=== PATIENT | female | born 1945 | race Caucasian/White ===

== ENCOUNTER → 2017-02-15 | Outpatient (CLI) | payer OTHER, MEDICARE | LOC: FLAB 15:22 | PROVIDERS: ATTEND Physician Assistant | DX: M25.572 Pain in left ankle and joints of left foot (principal); R93.8 Abnormal findings on diagnostic imaging of other specified body structures ==

== ENCOUNTER 2018-12-06 15:44 | Emergency (ER) | payer OTHER, MEDICARE ==
[2018-12-06 17:10] LABS: PLATELET COUNT 268 10^3/uL (150-400)
[2018-12-06] MEDS ORDERED: ACETAMINOPHEN 500 MG TAB PO ONE (17:30)
--- NOTE | 2018-12-06 17:34 | EDPHY ---
H & P Time Seen by Provider: 12/06/18 16:30 HPI/ROS: HPI Left shoulder pain. 73-year-old female by private vehicle with her . This patient reports that she woke last night with atraumatic left shoulder pain described as an aching crampy extending from the mid shoulder up into the anterior proximal frontal area of her neck and her trapezius musculature. She denies any history of traumatic injury. She took a meloxicam at 2:30 p.m. Today and has not had significant relief. She was sent here by her primary care physician Dr. Mylene Dahl for further workup. She has never had this pain before. She denies any chest pain. No shortness of breath. She does report after taking the meloxicam she had some nausea and lightheadedness which resolved. She also reports the pain in her left shoulder areas made worse by certain rotational movements of her left shoulder. ROS: Constitutional: No fever, no chills. No weakness. Eyes: No discharge. No changes in vision. ENT: No sore throat. No nasal congestion or rhinorrhea. Respiratory: No cough. No shortness of breath. Cardiac: No chest pain, no palpitations. Gastrointestinal: No abdominal pain, no vomiting, no diarrhea. Genitourinary: No hematuria. No dysuria or increased frequency with urination. Musculoskeletal: No back pain. No neck pain. As above. No other extremity pain. Skin: No rashes. Neurological: No headache. No focal weakness or altered sensation. Past medical history: Hyperlipidemia. Arthritis of both shoulders. Social history: Nonsmoker. Here with her . No alcohol. Physical Exam: General Appearance: Alert, no distress. This patient is responding to questions appropriately and in full sentences. This patient appears well- hydrated and well-nourished. Eyes: Pupils equal and round no pallor or injection. No lid edema, erythema or injection. Left shoulder exam: The left upper extremity is neurovascularly intact. The axillary nerve distribution is intact. She has no tenderness on palpation or deformity noted over her AC joint. The glenohumeral joint ranges freely in all planes of motion without any pain or impingement. There is no pain on axial compression of the glenohumeral joint through her humerus. There is no soft tissue swelling or edema noted involving her soft tissues of her proximal anterior neck and trapezius musculature. No rashes. Respiratory: There are no retractions, lungs are clear to auscultation with good air movement bilaterally. Cardiovascular: Regular rate and rhythm. No murmur. Gastrointestinal: Abdomen is soft and nontender, no masses, bowel sounds normal. No focal tenderness at McBurney's point. No Holcomb sign. Neurological: Motor sensory function is grossly intact. Cranial nerves are normal. Gait is normal. Skin: Warm and dry, no rashes. Musculoskeletal: Neck is supple and nontender. No pain on flexion of her neck. Extremities are symmetrical. All joints range without pain or impingement. Psychiatric: No agitation. No depression. Database: EKG: EKG time is 4:27 p.m.; EKG shows a narrow complex normal sinus rhythm with a ventricular rate of 76. Mild interventricular conduction delay noted. Left anterior fascicular block noted. Possible left ventricular hypertrophy. The MA , QRS, QT intervals are within normal limits. There are no ST-T wave changes indicative of ischemic or injury pattern. No evidence of right heart strain. Interpreted by me. Imaging: Procedures: Emergency department course: Triage vital signs reviewed and are unremarkable. IV was placed. She was placed on a monitor. EKG obtained and reviewed by myself. Patient's presentation is consistent with a musculoskeletal etiology of her shoulder pain. I believe referred pain from her diaphragm and spleen is unlikely. Acute coronary syndrome unlikely. 5:30 p.m., the patient was re-evaluated. She appears comfortable at this time. She denies any significant pain. Results of her EKG discussed with her and her . We are awaiting the results of her troponin. She explained to me that she did not want to be admitted. 6:15 p.m., patient re-evaluated, sitting upright on the gurney. Her relaxed and comfortable. She denies any significant pain. Results of her blood work including troponin were discussed with her. Her workup has been reassuring. I feel that acute coronary syndrome is unlikely. However, I discussed admission with the patient for observation and further testing overnight. She clearly does not want to be admitted to the hospital and is asking to be discharged. My professional opinion, she understands the risks of being discharged at this time given her complaint. She will follow up with her primary care physician, Dr. Mylene Dahl, in the next 1-2 days. Return to emergency department precautions were thoroughly reviewed with her. All of her questions were answered. She was discharged from the emergency department in good condition. Differential Diagnosis: The differential diagnosis on this patient includes but is not limited to left shoulder pain. Acute coronary syndrome, splenic injury, brachial plexus injury , cervical spine injury unlikely. This represents a partial list of diagnoses considered. These considerations are based on history, physical exam, past history, reassessment and diagnostic testing. Smoking Status: Never smoked Constitutional: Initial Vital Signs Temperature (C) 36.5 C 12/06/18 15:53 Heart Rate 81 12/06/18 15:53 Respiratory Rate 16 12/06/18 15:53 Blood Pressure 151/91 H 12/06/18 15:53 O2 Sat (%) 97 12/06/18 15:53 O2 Delivery Mode Room Air Allergies/Adverse Reactions: No Known Allergies Allergy (Unverified 10/29/12 10:56) Home Medications: Medication Instructions Recorded SIMVASTATIN [Zocor] 20 mg PO DAILY 09/29/10 Meloxicam 12/06/18 Medical Decision Making - Data Points Laboratory Results: Laboratory Results 12/06/18 16:43 12/06/18 16:43 12/06/18 12/06/18 12/06/18 17:28 16:43 16:43 WBC RBC Hgb Hct MCV MCH MCHC RDW Plt Count MPV Neut % (Auto) Lymph % (Auto) [place] % (Auto) Eos % (Auto) Baso % (Auto) Nucleat RBC Rel Count Absolute Neuts (auto) Absolute Lymphs (auto) Absolute Monos (auto) Absolute Eos (auto) Absolute Basos (auto) Absolute Nucleated RBC Immature Gran % Immature Gran # PT 12.6 SEC SEC (12.0-15.0) INR 0.92 (0.83-1.16) APTT 28.3 SEC SEC (23.0-38.0) Sodium 133 mEq/L L mEq/L (135-145) Potassium 4.8 mEq/L mEq/L (3.5-5.2) Chloride 99 mEq/L mEq/L (97-110) Carbon Dioxide 27 mEq/l mEq/l (22-31) Anion Gap 7 mEq/L mEq/L (6-14) BUN 24 mg/dL H mg/dL (7-23) Creatinine 0.8 mg/dL mg/dL (0.6-1.0) Estimated GFR > 60 Glucose 113 mg/dL H mg/dL (70-100) Calcium 9.2 mg/dL mg/dL (8.5-10.4) POC Troponin I 0.00 ng/mL ng/mL (0.00-0.08) 12/06/18 16:43 WBC 7.91 10^3/uL 10^3/uL (3.80-9.50) RBC 4.29 10^6/uL 10^6/uL (4.18-5.33) Hgb 13.0 g/dL g/dL (12.6-16.3) Hct 39.6 % % (38.0-47.0) MCV 92.3 fL fL (81.5-99.8) MCH 30.3 pg pg (27.9-34.1) MCHC 32.8 g/dL g/dL (32.4-36.7) RDW 13.1 % % (11.5-15.2) Plt Count 268 10^3/uL 10^3/uL (150-400) MPV 10.2 fL fL (8.7-11.7) Neut % (Auto) 73.5 % % (39.3-74.2) Lymph % (Auto) 15.0 % % (15.0-45.0) [place] % (Auto) 9.2 % % (4.5-13.0) Eos % (Auto) 1.4 % % (0.6-7.6) Baso % (Auto) 0.6 % % (0.3-1.7) Nucleat RBC Rel Count 0.0 % % (0.0-0.2) Absolute Neuts (auto) 5.81 10^3/uL 10^3/uL (1.70-6.50) Absolute Lymphs (auto) 1.19 10^3/uL 10^3/uL (1.00-3.00) Absolute Monos (auto) 0.73 10^3/uL 10^3/uL (0.30-0.80) Absolute Eos (auto) 0.11 10^3/uL 10^3/uL (0.03-0.40) Absolute Basos (auto) 0.05 10^3/uL 10^3/uL (0.02-0.10) Absolute Nucleated RBC 0.00 10^3/uL 10^3/uL (0-0.01) Immature Gran % 0.3 % % (0.0-1.1) Immature Gran # 0.02 10^3/uL 10^3/uL (0.00-0.10) PT INR APTT Sodium Potassium Chloride Carbon Dioxide Anion Gap BUN Creatinine Estimated GFR Glucose Calcium POC Troponin I Medications Given: Discontinued Medications Acetaminophen (Tylenol) 1,000 mg PO EDNOW ONE Stop: 12/06/18 17:31 Last Admin: 12/06/18 17:47 Dose: 1,000 mg Point of Care Test Results: Chemistry 12/06/18 17:28 POC Troponin I 0.00 ng/mL ng/mL (0.00-0.08) Departure - Departure Disposition: Home, Routine, Self-Care Clinical Impression: Left shoulder pain Condition: Good Instructions: Shoulder Pain (ED) Additional Instructions: Read and follow provided instructions. Follow-up with your primary care physician, Dr. Mylene Dahl, in 1-2 days for re-evaluation. Take Tylenol as directed. Avoid any activity which exacerbates the pain in her shoulder. Return to the emergency department for worsening pain, any chest pain, any shortness of breath, lightheadedness or other serious concerns. Referrals: Mylene Dahl MD [Primary Care Provider] - As per Instructions
[2018-12-06 17:41] LABS: INR 0.92 (0.83-1.16); PROTIME(PATIENT) 12.6 SEC (12.0-15.0)
[2018-12-06 17:47] VITALS: BP 122/71
--- NOTE | 2018-12-06 20:55 | CPEKG ---
Test Reason : OPEN Blood Pressure : / mmHG Vent. Rate : 076 BPM Atrial Rate : 076 BPM P-R Int : 175 ms QRS Dur : 114 ms QT Int : 394 ms P-R-T Axes : 059 -51 043 degrees QTc Int : 444 ms Sinus rhythm Left anterior fascicular block Abnormal R-wave progression, early transition Left ventricular hypertrophy Confirmed by Zachery Sofia ([id number]) on 12/06/2018 8:54:27 PM Referred By: Confirmed By:Zachery Sofia
== END 2018-12-06 18:19 | disposition home or self-care (01) ==
DX: M25.512 Pain in left shoulder (principal)
CPT/HCPCS: 84484-ER

== ENCOUNTER 2018-12-26 17:06 | Inpatient (IN) | payer OTHER, MEDICARE ==
[~2018-12-26 17:06] MED LIST: IOHEXOL 350mgI/ML (OMNIPAQUE) 150 ML BTL IV ONE
--- NOTE | 2018-12-26 17:18 | EDPHY ---
H & P Stated Complaint: sob/palpitations chest cta today pericardial and pleural effusions Time Seen by Provider: 12/26/18 17:17 HPI/ROS: CHIEF COMPLAINT: Chest pain, pleural and pericardial effusions on outpatient CTA today HISTORY OF PRESENT ILLNESS: The patient is a 73 y/o female arriving with her partner from [facility] complaining of chest pain with pleural and pericardial effusions on outpatient chest CTA today. Three weeks ago she awoke with acute onset pain like a "knife in my left shoulder being twisted." She took pain medication without improvement and came to the ED due to concern for a heart attack and had a negative work up at that time, though admission was recommended. Since then, she has been using Tylenol and ibuprofen multiple times per day for pain, but this does not always control her pain. She visited [place] shortly after her ED visit and while there developed dyspnea worse with mild exertion. The dyspnea and left shoulder pain has persisted and is aggravated by inhalation. She was referred to [facility] for this shoulder pain and saw Dr. August for the first time today. Dr. August was concerned that symptoms were related to a pulmonary issue and ordered chest CTA today. This showed pleural and pericardial effusions and she was referred to the ED. REVIEW OF SYSTEMS: A ten system review of systems was performed and is negative with the exception of the items mentioned in the HPI. Past medical history: 1. Hyperlipidemia 2. Arthritis Past surgical history: Noncontributory Family history: Noncontributory Social history: Partner at bedside. Physically active. Nonsmoker. No alcohol. PCP: Dr. Mylene Dahl Prior medical records reviewed including ED visit 12/06/18 for shoulder pain and outpatient General Appearance: Alert. Vital signs reviewed. HR around 150. Eyes: Pupils equal and round, no conjunctival injection, no discharge. Anicteric. ENT, Mouth: Mucous membranes are moist, no oropharyngeal erythema or edema. Neck: No lymphadenopathy, supple. Respiratory: Lungs have crackles on the right, diminished on the left. No wheezes or rhonchi. Cardiovascular: Rapid irregularly irregular rate and rhythm; no murmur, rub, or gallop. Gastrointestinal: Abdomen is soft and nontender, no masses or organomegaly. Skin: Warm and dry, no rashes on exposed skin, normal color. Back: Nontender to palpation over the thoracolumbar spine. No CVAT. Extremities: No lower extremity edema, no calf tenderness or swelling. Neurological: Alert and oriented. Moving all four extremities easily and equally. Psychiatric: Normal affect. - Personal History Current Tetanus Diphtheria and Acellular Pertussis (TDAP): Yes - Medical/Surgical History Hx Asthma: No Hx Chronic Respiratory Disease: No Hx Diabetes: No Hx Cardiac Disease: No Hx Renal Disease: No Hx Cirrhosis: No Hx Alcoholism: No Hx HIV/AIDS: No Hx Splenectomy or Spleen Trauma: No Other PMH: high cholesterol. bilat shoulder issues - Social History Smoking Status: Never smoked Constitutional: Initial Vital Signs Temperature (C) 36.9 C 12/26/18 17:12 Heart Rate 101 H 12/26/18 17:12 Respiratory Rate 18 12/26/18 17:12 Blood Pressure 141/91 H 12/26/18 17:12 O2 Sat (%) 94 12/26/18 17:12 O2 Delivery Mode Room Air Allergies/Adverse Reactions: meloxicam Allergy (Verified 12/26/18 17:10) Home Medications: Medication Instructions Recorded SIMVASTATIN [Zocor] 20 mg PO DAILY@18 09/29/10 Acetaminophen [Tylenol 325mg (*)] 650 mg PO Q4 PRN 12/26/18 Ibuprofen [Motrin (*)] 200 mg PO Q6 PRN 12/26/18 Medical Decision Making - Diagnostics Imaging: Discussed imaging studies w/ calliope player Radiologist, I viewed and interpreted images myself ED Course/Re-evaluation: This is a 73 y/o female with minimal prior diagnoses who presents with a 3-week history of left shoulder pain and negative prior ED work up for this who presents with pleural effusions and pericardial effusion on outpatient chest CTA today. She has a rapid irregular heart rate around 130-150 and crackles on the right to auscultation, but is generally well-appearing. Plan for IV, labs, EKG, rate control, echocardiogram, admission. 10mg IV Diltazem ordered. The 12 lead EKG was interpreted by myself. Rapid atrial fibrillation, rate around 125. See hard copy and/or "tracemaster" electronic copy for interpretation. Spoke with hospitalist service. Dr. Dee accepts admission. 1844: Reevaluated patient and discussed findings. HR between 110-125. 1919: Consulted with Dr. Jacob, cardiology. He will review echocardiogram once complete. Patient received 10 mg iv diltiazem, with dip in her BP (systolic 90s), no symptoms related to hypotension. Will hold off on additional diltiazem for now , consider amiodarone. She continues to be in afib. Echocardiogram performed in ED. will see patient. I am told that there is no evidence of cardiac tamponade. She will require additional evaluation of her pleural and pericardial effusions (malignancy? autoimmune disorder? pericarditis?). Differential Diagnosis: I considered a ddx of afib that includes but is not limited to ACS, valvular disease,stimulants, SSS, sleep apnea, endocrine disorder. - Data Points Laboratory Results: Laboratory Results 12/26/18 18:00 12/26/18 18:00 Medications Given: Acetaminophen (Tylenol) 650 mg PO Q4HRS PRN PRN Reason: Pain, Mild/Fever, Can Take PO Stop: 06/24/19 18:59 Last Admin: 12/31/18 06:40 Dose: 650 mg Aspirin (Aspirin) 325 mg PO DAILY KATIE Stop: 06/24/19 19:14 Last Admin: 12/31/18 12:19 Dose: 325 mg Colchicine (Colchicine) 0.6 mg PO DAILY KATIE Stop: 06/29/19 12:14 Last Admin: 12/31/18 12:19 Dose: 0.6 mg Enoxaparin Sodium (Lovenox) 40 mg SC DAILY KATIE Stop: 06/25/19 08:59 Last Admin: 12/31/18 12:19 Dose: 40 mg Miscellaneous Information (Patch Removal) 1 ea TD DAILY21 KATIE Stop: 06/28/19 20:59 Last Admin: 12/30/18 23:45 Dose: 1 ea Miscellaneous Medication (Non-Formulary) 20 ea PO DAILY@18 KATIE Stop: 06/27/19 17:59 Last Admin: 12/30/18 17:02 Dose: 20 mg Miscellaneous Medication (Icy Hot Lidocaine/Menthol 4%/1% Patch) 1 patch TD DAILY KATIE Stop: 06/28/19 13:29 Last Admin: 12/31/18 12:23 Dose: Not Given Pantoprazole Sodium (Protonix) 40 mg PO DAILY KATIE Stop: 06/29/19 12:14 Last Admin: 12/31/18 12:19 Dose: 40 mg Discontinued Medications Atorvastatin Calcium (Lipitor) 10 mg PO DAILY@1800 KATIE Stop: 06/25/19 17:59 Last Admin: 12/28/18 19:21 Dose: 10 mg Diltiazem HCl (Cardizem 25 Mg/5 Ml Vial) 20 mg IVP EDNOW ONE Stop: 12/26/18 17:53 Last Admin: 12/26/18 18:20 Dose: 10 mg Amiodarone HCl (Amiodarone Hcl) 100 mls @ 600 mls/hr IV ONCE ONE Stop: 12/26/18 21:04 Last Admin: 12/26/18 22:20 Dose: 100 mls Amiodarone HCl (Amiodarone Hcl) 200 mls @ 33.333 mls/hr IV ONCE ONE Stop: 12/27/18 02:54 Last Admin: 12/26/18 22:24 Dose: 200 mls Amiodarone HCl 540 mg/ (Dextrose) 300 mls @ 16.667 mls/hr IV ONCE ONE Stop: 12/27/18 21:59 Last Admin: 12/27/18 04:41 Dose: Not Given Sodium Chloride (Ns) 500 mls @ 0 mls/hr IV ONCE ONE PRN Reason: Wide Open Stop: 12/26/18 23:36 Last Admin: 12/26/18 23:40 Dose: 500 mls Ibuprofen (Motrin) 200 mg PO Q6 PRN PRN Reason: PAIN, INFLAMMATORY Stop: 06/24/19 20:22 Last Admin: 12/31/18 11:22 Dose: 200 mg Metoprolol Tartrate (Lopressor) 25 mg PO ONCE ONE Stop: 12/31/18 11:59 Last Admin: 12/31/18 12:19 Dose: 25 mg Point of Care Test Results: Chemistry 12/26/18 18:07 POC Troponin I 0.00 ng/mL ng/mL (0.00-0.08) Departure - Departure Disposition: [facility] Acute Clinical Impression: Pericardial effusion, Pleural effusion, Rapid atrial fibrillation Condition: Fair Report Scribed for: Clau Maradiaga Report Scribed by: Priscilla Costello Date of Report: 12/26/18 Time of Report: 17:28 Physician Review and Approval Statement: 12/26/18 17:18 Portions of this note were transcribed by the adjunct faculty for medical terminology. I, Dr. Clau Maradiaga, personally performed the history, physical exam, and medical decision- making; and confirmed the accuracy of the information in the transcribed note.
[2018-12-26] MEDS ORDERED: DILTIAZEM 25 MG/5 ML VIAL IVP ONE (17:52)
[2018-12-26 18:15] LABS: PLATELET COUNT 475 10^3/uL (150-400)
[2018-12-26] MEDS ORDERED: ONDANSETRON 4 MG/2 ML VIAL IVP PRN (19:00)
[2018-12-26] MEDS ORDERED: ONDANSETRON DISINTEGRATING 4 MG TAB PO PRN (19:00)
--- NOTE | 2018-12-26 19:10 | CPEKG ---
Test Reason : OPEN Blood Pressure : / mmHG Vent. Rate : 125 BPM Atrial Rate : 283 BPM P-R Int : 106 ms QRS Dur : 105 ms QT Int : 316 ms P-R-T Axes : 081 -47 119 degrees QTc Int : 456 ms Atrial fibrillation Left anterior fascicular block LVH with secondary repolarization abnormality Confirmed by Dayday Forrester ([id number]) on 12/26/2018 7:10:24 PM Referred By: DAYDAY FORRESTER Confirmed By:Dayday Forrester
--- NOTE | 2018-12-26 19:38 | PDGENHP ---
History and Physical - Chief Complaint Chest pain, MAXWELL - History of Present Illness Sue Varner is a 73 yo F with a no significant PMHx who presents to [facility] for chest pain and MAXWELL. Patient reports that she started having L shoulder pain about 3 weeks ago that woke her up from sleep. She took OTC pain medication without significant improvement and presented to ED at that time. Her workup was negative. She continued to take Tylenol for pain which would help but not resolve the pain. She visited [place] recently and had acute onset MAXWELL. She reports that this would improve with rest. She continued to have L sided chest pain despite taking pain medications. Pain is described as sharp, radiating to her R side, with associated SOB. She denies any LH/Dizziness, palpitations, lower extremity edema, f/c, n/v, dysuria. She was seen in [facility] today and complained of chest pain and was sent for CXR and CTA. CXR shows small L pleural effusion, CTA shows no PE, mild cardiomegaly with moderate pericardial effusion, moderate L sided pleural effusion. Upon arrival to ED, she was found to be in A Fib with RVR with HR to 140's. She was given 10 mg IV Diltiazem with HR 100-120's. History Information - Allergies/Home Medication List Allergies/Adverse Reactions: meloxicam Allergy (Verified 12/26/18 17:10) Home Medications: SIMVASTATIN [Zocor] 20 mg PO DAILY@18 09/29/10 [Last Taken 12/25/18] Acetaminophen [Tylenol 325mg (*)] 650 mg PO Q4 PRN 12/26/18 [Last Taken 16:30] Ibuprofen [Motrin (*)] 200 mg PO Q6 PRN 12/26/18 [Last Taken 12/26/18 16:30] I have personally reviewed and updated: family history, medical history, social history, surgical history - Past Medical History hyperlipidemia - Surgical History Reports: no pertinent surgical hx - Family History Positive for: non-pertinent - Social History Smoking Status: Never smoked Review of Systems Review of Systems: ROS: 10pt was reviewed & negative except for what was stated in HPI & below Physical Exam Physical Exam: Temp Pulse Resp BP Pulse Ox 36.9 C 99 16 99/72 L 92 12/26/18 17:12 12/26/18 18:31 12/26/18 18:31 12/26/18 18:31 12/26/18 18:31 Constitutional: no apparent distress Eyes: PERRL Ears, Nose, Mouth, Throat: moist mucous membranes Cardiovascular: irregularly irregular, tachycardia Respiratory: no respiratory distress, reduced air movement Gastrointestinal: soft, non-tender abdomen Musculoskeletal: full muscle strength Neurologic: AAOx3 Psychiatric: interacting appropriately Lab Data & Imaging Review 12/26/18 18:00 12/26/18 18:00 WBC 10.04 10^3/uL (3.80-9.50) H 12/26/18 18:00 RBC 3.65 10^6/uL (4.18-5.33) L 12/26/18 18:00 Hgb 10.7 g/dL (12.6-16.3) L 12/26/18 18:00 Hct 32.4 % (38.0-47.0) L 12/26/18 18:00 MCV 88.8 fL (81.5-99.8) 12/26/18 18:00 MCH 29.3 pg (27.9-34.1) 12/26/18 18:00 MCHC 33.0 g/dL (32.4-36.7) 12/26/18 18:00 RDW 13.2 % (11.5-15.2) 12/26/18 18:00 Plt Count 475 10^3/uL (150-400) H 12/26/18 18:00 MPV 9.0 fL (8.7-11.7) 12/26/18 18:00 Neut % (Auto) 74.7 % (39.3-74.2) H 12/26/18 18:00 Lymph % (Auto) 12.2 % (15.0-45.0) L 12/26/18 18:00 [place] % (Auto) 10.2 % (4.5-13.0) 12/26/18 18:00 Eos % (Auto) 1.9 % (0.6-7.6) 12/26/18 18:00 Baso % (Auto) 0.6 % (0.3-1.7) 12/26/18 18:00 Nucleat RBC Rel Count 0.0 % (0.0-0.2) 12/26/18 18:00 Absolute Neuts (auto) 7.51 10^3/uL (1.70-6.50) H 12/26/18 18:00 Absolute Lymphs (auto) 1.22 10^3/uL (1.00-3.00) 12/26/18 18:00 Absolute Monos (auto) 1.02 10^3/uL (0.30-0.80) H 12/26/18 18:00 Absolute Eos (auto) 0.19 10^3/uL (0.03-0.40) 12/26/18 18:00 Absolute Basos (auto) 0.06 10^3/uL (0.02-0.10) 12/26/18 18:00 Absolute Nucleated RBC 0.00 10^3/uL (0-0.01) 12/26/18 18:00 Immature Gran % 0.4 % (0.0-1.1) 12/26/18 18:00 Immature Gran # 0.04 10^3/uL (0.00-0.10) 12/26/18 18:00 Sodium 130 mEq/L (135-145) L 12/26/18 18:00 Potassium 4.0 mEq/L (3.5-5.2) 12/26/18 18:00 Chloride 101 mEq/L (97-110) 12/26/18 18:00 Carbon Dioxide 22 mEq/l (22-31) 12/26/18 18:00 Anion Gap 7 mEq/L (6-14) 12/26/18 18:00 BUN 24 mg/dL (7-23) H 12/26/18 18:00 Creatinine 0.8 mg/dL (0.6-1.0) 12/26/18 18:00 Estimated GFR > 60 12/26/18 18:00 Glucose 143 mg/dL (70-100) H 12/26/18 18:00 Calcium 9.0 mg/dL (8.5-10.4) 12/26/18 18:00 POC Troponin I 0.00 ng/mL (0.00-0.08) 12/26/18 18:07 NT-Pro-B Natriuret Pep 557 pg/mL (0-125) H 12/26/18 18:00 Assessment & Plan Assessment: Chest Pain - Duration ~3 weeks, awoke from sleep, sharp in quality - Associated with SOB - No prior hx of cardiac disease - Initially EKG significant for A Fib w RVR, no ischemic changes - Negative troponin on admission - Differential includes ACS, pericarditis, pericardial effusion - Will order Chest Pain protocol with serial Trop, EKG - Ordered stress test in the AM pending workup of pericardial effusion and A Fib w RVR as below - S/p ASA 325 mg, will continue qd Pericardial Effusion - Moderate Pericardial effusion seen on CTA this afternoon - Stat TTE ordered by ED, also called cardiology for STAT consult - F/u TTE results for size of effusion, hemodynamic compromise - F/u cardiology recommendations A Fib with RVR - Acute onset, no hx of A Fib - HR 140's on admission - S/p 10 mg IV Diltiazem with improvement in HR to 100-120's, BP low normal, 99/ 72 last reading - Discussed with Dr. Jacob, recommends starting Amiodarone gtt - CHADsVASC atleast 2 given sex and age, will start ASA 325 mg as above Pleural Effusion - Moderate L sided effusion seen on CTA - In setting of pericardial effusion - TTE performed this evening - Will hold off on Diuretics at this time - Will order thoracentesis for further evaluation given pericardial effusion as well Hyponatremia - Na 130 on admission - Unclear etiology at this time - Repeat Na in the AM FEN: NPO for now pending STAT TTE Code: FULL DVT PPx: SubQ Lovenox Dispo: Admit to Medicine
[2018-12-26] MEDS: ASPIRIN 325 MG TAB PO SCH (19:41)
[2018-12-26] MEDS ORDERED: DILTIAZEM 25 MG/5 ML VIAL IVP PRN ×2 (19:52→20:35)
--- NOTE | 2018-12-26 19:58 | ECHO ---
[email or web address] [address] [address] Main: [phone] Fax: [email or web address] Echocardiogram Name: REESE PAT MR#: [id number] Study Date: 12/26/2018 Study Time: 07:03 PM Date of : 1945 Age: 73 year(s) Height: 165.1 cm (65 in.) Weight: 60.33 kg (133 lb.) BSA: 1.66 m2 Gender: Female Examination: Echo Indication: pleural and cardiac effusion Image Quality: Adequate Contrast: Requested by: Clau Maradiaga BP: 99 mmHg/72 mmHg Heart Rate: Rhythm: Indication: pleural and cardiac effusion Procedure Staff Manager Agricultural: Rosemarie Barragan JAMES Reading Physician: Ruddy Jacob MD Requesting Provider: Conclusions: Normal size left ventricle. No LV hypertrophy. Normal size right ventricle. The left atrium is normal in size. The right atrium is normal in size. The mitral valve is normal in appearance and function. Mild mitral valve regurgitation is present. The aortic valve is tri-leaflet. The tricuspid valve is normal in appearance and function. Mild tricuspid regurgitation is present. Right ventricular systolic pressure measures 33mmHg. There is a pleural effusion present. There is a circumferential pericardial effusion measuring around 1 cm. No RV/RA collapse noted, however, patient was in atrial fibrillation with rapid ventricular response.. Patient supine due to left arm pain and unable to take breaths in to optimize subcostal imaging. Measurements: Chambers Valvular Assessment AV/MV Valvular Assessment TV/PV Normal Normal Normal Name Value Range Name Value Range Name Value Range Ao Hannah (2D): 2.9 cm (1.4 cm-2.6 AV Vmax: 1.02 m/s (1 m/s-1.7 TR Vmax: 2.66 mm/s ( - ) cm) m/s) TR PGmax: 28 mmHg ( - ) IVSd (2D): 1.1 cm (0.6 cm-1.1 AV maxP mmHg ( - ) syst. PAP: 33 mmHg ( - ) cm) AV meanP mmHg ( - ) PV Vmax: 0.76 m/s (0.6 m/s-0.9 LVDd (2D): 4.6 cm (3.9 cm-5.3 LVOT Vmax: 0.74 m/s (0.7 m/s-1.1 m/s) cm) m/s) PV PGmax: 2 mmHg ( - ) LVDs (2D): 3.1 cm (2.1 cm-4 LAURO (Vmax): 1.8 cm2 ( - ) cm) LAURO (VTI): 1.3 cm ( - ) LVPWd (2D): 1.0 cm ( - ) MV E Vmax: 0.70 m/s ( - ) LVOTd 1.8 cm 1.8 cm mm MV PHT: 0.028 s ( - ) Patient: REESE PAT Study Date: 12/26/2018 Page 1 of 2 07:03 PM MVA (PHT): 7.9 s ( - ) Continued Measurements: Chambers Valvular Assessment AV/MV Valvular Assessment TV/PV Name Value Name Value Name Value LADs: 3.1 cm MV DecTime: 102 m/s CVP (est.): 5 mmHg LADs Lon.4 cm LA Area: 15.5 cm2 LA Volume: 35 ml LA Volume Index: 21.1 ml/m2 Additional Vessels Name Value Ao Ascendin.8 cm Inferior Vena Cava: 1.9 cm Findings: Left Ventricle: Normal size left ventricle. No LV hypertrophy. Diastolic dysfunction is present. . Right Ventricle: Normal size right ventricle. Left Atrium: The left atrium is normal in size. Right Atrium: The right atrium is normal in size. Mitral Valve: The mitral valve is normal in appearance and function. Mild mitral valve regurgitation is present. No mitral stenosis is present. Aortic Valve: The aortic valve is tri-leaflet. There is no significant aortic valve regurgitation. No aortic valve stenosis is present. Tricuspid Valve: The tricuspid valve is normal in appearance and function. Mild tricuspid regurgitation is present. The pulmonary artery pressure is normal. Right ventricular systolic pressure measures 33mmHg. Pulmonic Valve: The pulmonic valve is normal in appearance and function. Aorta: The aorta is normal. Normal size aortic root measuring 2.9 cm. Normal size ascending aorta measuring 2.8 cm. IVC: The IVC is normal sized. Pericardium: There is a pleural effusion present. There is a circumferential pericardial effusion measuring around 1 cm. No RV/RA collapse noted, however, patient was in atrial fibrillation with rapid ventricular response.. Exam Comments: Patient supine due to left arm pain and unable to take breaths in to optimize subcostal imaging. (No Signature Object) Patient: REESE PAT Study Date: 12/26/2018 Page 2 of 2 07:03 PM [id number]
--- NOTE | 2018-12-26 20:33 | CPEKG ---
Test Reason : OPEN Blood Pressure : / mmHG Vent. Rate : 109 BPM Atrial Rate : 140 BPM P-R Int : 203 ms QRS Dur : 104 ms QT Int : 339 ms P-R-T Axes : 000 -44 117 degrees QTc Int : 457 ms Atrial fibrillation Left anterior fascicular block LVH with secondary repolarization abnormality Confirmed by Dayday Forrester ([id number]) on 12/26/2018 8:33:33 PM Referred By: DAYDAY FORRESTER Confirmed By:Dayday Forrester
[2018-12-26] MEDS ORDERED: AMIODARONE HCL 200 ML IV ONE (20:55)
[2018-12-26] MEDS ORDERED: AMIODARONE HCL 100 ML IV ONE (20:55)
[2018-12-26] MEDS ORDERED: NS 500 ML IV ONE (23:35)
[2018-12-27] MEDS: ACETAMINOPHEN 325 MG TAB PO PRN ×4 (03:40→20:23)
[2018-12-27] MEDS: IBUPROFEN 200 MG TAB PO PRN ×4 (03:40→22:51)
[2018-12-27] MEDS ORDERED: AMIODARONE HCL 540 MG in D5W 300 ML IV ONE (04:00)
--- NOTE | 2018-12-27 09:39 | HOSPPROG ---
Hospitalist Progress Note Assessment/Plan: #Atrial fibrillation with RVR: converted to NSR with Amio #Pleural/pericardial effusion: concern for malignancy vs autoimmune process with CRP 228 -thoracentesis today -JACINTO, RF, cytology and pleural studies pending -need to clarify with her of cancer screening done #Hypovolemic hyponatremia: improved #Left shoulder pain: concern for anginal equivalent. -Lexiscan showed inferior wall defect concerning for ischemia -awaiting pleural studies before other cardiac testing #Diet: regular #DVT ppx: Lovenox #Disp: inpatient admission for thorac, cardiac evaluation Subjective: left shoulder pain with deep inspiration Objective: Vital Signs Temp Pulse Resp BP Pulse Ox 36.9 C 72 16 109/68 97 12/27/18 08:00 12/27/18 08:00 12/27/18 08:00 12/27/18 08:00 12/27/18 08:00 Laboratory Results 12/27/18 07:25 12/27/18 07:25 12/26/18 12/27/18 12/28/18 05:59 05:59 05:59 Intake Total 1270 Output Total 300 150 Balance 970 -150 - Time Spent With Patient Time Spent with Patient: greater than 35 minutes Time Spent with Patient: Greater than 35 minutes spent on this patients care, greater than 50% of time spent counseling, educating, and coordinating care regarding the above mentioned plan. - Physical Exam Constitutional: no apparent distress Ears, Nose, Mouth, Throat: moist mucous membranes Cardiovascular: regular rate and rhythym, other (distant heart sounds, rub present) Respiratory: other (decreased BS left base) ICD10 Worksheet Patient Problems: Problems Problem Status Onset Pericardial effusion Acute Pleural effusion Acute Rapid atrial fibrillation Acute
--- NOTE | 2018-12-27 09:54 | PDMN ---
Medical Necessity Medical necessity: [facility] M89 CP, A-1 day: 73 yo w/ CP and dyspnea on exertion. CTA shows mod L pleural effusion and mod pericardial effusion, cardio consult and stat TTE ordered. Pt in new onset acute afib w/ RVR w/ no hx. Cont tele monitoring. Anticipate>2MN for further dx testing, monitoring and tx of the above. Meets [facility] IP criteria for M89 CP w/ hemodynamic instability.
[2018-12-27] MEDS ORDERED: REGADENOSON 0.4 MG/5 ML SYR IVP ONE (11:06)
--- NOTE | 2018-12-27 12:13 | CPR ---
[f rep st] NONINVASIVE CARDIAC PROCEDURE REPORT DATE OF PROCEDURE: 12/27/2018 REASON FOR TEST: Chest pain, left arm pain. Resting EKG shows a sinus rhythm with a rate of 72. She has a left anterior fascicular block, late R -wave progression, nonspecific T-wave changes. Resting blood pressure is 114/70. Resting oxygen sat uration 98%. Resting heart rate 72. She is asymptomatic prior to the initiation of test. TEST PORTION: Lexiscan nuclear stress test. Lexiscan was injected rapidly followed by saline flush. Cardiolite was then injected followed by kyree ine flush. She did feel shortness of breath. Peak blood pressure was 120/66, peak heart rate 99, ox ygen saturation 96%. RECOVERY: She did spontaneously recover. Signs and symptoms subsided spontaneously. There were no EKG changes throughout the testing or recovery time. Resting blood pressure 118/72, heart rate 96, o xygen saturation 75%. At this time, she currently is stable for nuclear imaging. /[id number]/MODL
[2018-12-27 13:19] LABS: INR 1.14 (0.83-1.16); PROTIME(PATIENT) 14.8 SEC (12.0-15.0)
[2018-12-27] MEDS ORDERED: LIDOCAINE 1% 300 MG/30 ML SDV ONE (13:51)
--- NOTE | 2018-12-27 13:57 | ASMTCMCOM ---
CM Note CM Note Notes: Pts case discussed in tx rounds. Pt is a 73 y/o female admitted for afib rapid vent response. Therapies have been ordered and awaiting recommendations. Needs are TBD at this time. CM to follow. Plan: TBD Date Signed: 12/27/2018 01:57 PM Electronically Signed By:CAMILLA Rowe
--- NOTE | 2018-12-27 15:15 | PDCARCONS ---
Cardiology Consult Reason for Consult: Pericardial effusion noted on CT scan Chief Complaint: Left shoulder pains Requesting Physician: Hospitalist Team History of Present Illness: Patient is a 73 y/o female with unremarkable past medical history (no known history of CAD, HTN, or DM), but a history of HLP has been noted, and the patient is on statins therapy with recently noted left sided chest discomfort and dyspnea. Three weeks ago, patient was seen by PCP with complaints of left shoulder pains, for which she has been taking NSAID therapies for, with moderate success. At that time, the patient did present to the ER for evaluation, but no gross pathology was noted. Tylenol has been the most successful therapy for the pains that have been noted. Patient opted to travel to [place] (she reportedly travels internationally on a monthly basis, for fun), and continued to note more severe shortness of breath. The chest discomfort noted also became more pronounced, with "sharp" as descriptor. No fevers or chills. No PND or orthopnea. No lower extremity swelling/edema has been noted. Patient was being seen at [facility], and ultimately had a CXR ( bilateral pleural effusions were noted) and a CT (rule out PE) with noted pericardial effusion (but no pulmonary emboli). A moderate left sided pleural effusion was also noted. [facility] contacted cardiology pest control worker helper (me) and recommendations were for more appropriate assessment of the noted pericardial effusion (CT scan can overestimate this finding). In the ER, the patient was also noted to be in atrial fibrillation. Echocardiography was read last night with a small pericardial effusion noted, without tamponade physiology noted. Labs requested overnight included CRP, which was noted to be exceedingly elevated (>200). In the ER, the patient was given 10 mg of IV CCB, and hypotension was noted. Given this response. recommendations last night were for Amiodarone bolus, which successfully converted the patient to normal sinus rhythm as of this morning. At present, the patient is resting comfortably. A 12 point review of systems was without further pathology identified. History Information - Allergies/Home Medication List Allergies/Adverse Reactions: meloxicam Allergy (Verified 12/26/18 17:10) Home Medications: SIMVASTATIN [Zocor] 20 mg PO DAILY@18 09/29/10 [Last Taken 12/25/18] Acetaminophen [Tylenol 325mg (*)] 650 mg PO Q4 PRN 12/26/18 [Last Taken 16:30] Ibuprofen [Motrin (*)] 200 mg PO Q6 PRN 12/26/18 [Last Taken 12/26/18 16:30] I have personally reviewed and updated: family history, medical history, social history, surgical history Past Medical History: - Past Medical History hyperlipidemia - Surgical History Reports: no pertinent surgical hx - Family History Positive for: non-pertinent - Social History Smoking Status: Never smoked Alcohol Use: Rarely Drug Use: None Cardiac History - Cardiac History Cardiac Risk Factors: lipidemia Timing/Duration: Weeks Severity: moderate Severity Scale: 8 Location: shoulder Activities at Onset: activity Modifying Factors: improves with: lying down, rest Associated Symptoms: chest pain, malaise, shortness of breath MARGARET Risk Evaluation age greater or equal to 65: yes greater or equal to 3 CAD risk factors: no known CAD(stenosis greater or eqaul to 50%): no ASA use in past 7 days: no severe angina(greater or equal to 2 episodes in 24hrs): no EKG ST changes greater or equal to 0.5mm: no positive cardiac marker: no Total Score: 1 MARGARET Score: 4.7% risk Physical Exam Physical Exam: Temp Pulse Resp BP Pulse Ox 36.9 C 90 18 140/74 H 93 12/27/18 11:57 12/27/18 11:57 12/27/18 11:57 12/27/18 11:57 12/27/18 12:03 O2 (L/minute) 2 Constitutional: no apparent distress, appears nourished, not in pain Eyes: PERRL, EOMI Ears, Nose, Mouth, Throat: moist mucous membranes, hearing normal, ears appear normal Cardiovascular: regular rate and rhythym, pulses symmetric bilaterally, other (( +) rub was noted today), No JVD Peripheral Pulses: 2+: dorsalis-pedis (R), dorsalis-pedis (L) Respiratory: no respiratory distress, clear to auscultation Gastrointestinal: normoactive bowel sounds Skin: warm, No rash Musculoskeletal: full muscle strength, no muscle tenderness, normal joint ROM Neurologic: AAOx3, sensation intact bilaterally, CN II-XII Intact Psychiatric: interacting appropriately, not anxious, not encephalopathic Lab and Imaging 12/27/18 07:25 12/27/18 07:25 WBC 11.85 10^3/uL (3.80-9.50) H 12/27/18 07:25 RBC 3.32 10^6/uL (4.18-5.33) L 12/27/18 07:25 Hgb 9.8 g/dL (12.6-16.3) L 12/27/18 07:25 Hct 29.8 % (38.0-47.0) L 12/27/18 07:25 MCV 89.8 fL (81.5-99.8) 12/27/18 07:25 MCH 29.5 pg (27.9-34.1) 12/27/18 07:25 MCHC 32.9 g/dL (32.4-36.7) 12/27/18 07:25 RDW 13.5 % (11.5-15.2) 12/27/18 07:25 Plt Count 431 10^3/uL (150-400) H 12/27/18 07:25 MPV 9.0 fL (8.7-11.7) 12/26/18 18:00 Neut % (Auto) 74.7 % (39.3-74.2) H 12/26/18 18:00 Lymph % (Auto) 12.2 % (15.0-45.0) L 12/26/18 18:00 [place] % (Auto) 10.2 % (4.5-13.0) 12/26/18 18:00 Eos % (Auto) 1.9 % (0.6-7.6) 12/26/18 18:00 Baso % (Auto) 0.6 % (0.3-1.7) 12/26/18 18:00 Nucleat RBC Rel Count 0.0 % (0.0-0.2) 12/26/18 18:00 Absolute Neuts (auto) 7.51 10^3/uL (1.70-6.50) H 12/26/18 18:00 Absolute Lymphs (auto) 1.22 10^3/uL (1.00-3.00) 12/26/18 18:00 Absolute Monos (auto) 1.02 10^3/uL (0.30-0.80) H 12/26/18 18:00 Absolute Eos (auto) 0.19 10^3/uL (0.03-0.40) 12/26/18 18:00 Absolute Basos (auto) 0.06 10^3/uL (0.02-0.10) 12/26/18 18:00 Absolute Nucleated RBC 0.00 10^3/uL (0-0.01) 12/26/18 18:00 Immature Gran % 0.4 % (0.0-1.1) 12/26/18 18:00 Immature Gran # 0.04 10^3/uL (0.00-0.10) 12/26/18 18:00 ESR 27 MM/HR (0-30) 12/26/18 21:18 PT 14.8 SEC (12.0-15.0) 12/27/18 12:55 INR 1.14 (0.83-1.16) 12/27/18 12:55 APTT 37.5 SEC (23.0-38.0) 12/27/18 12:55 Sodium 132 mEq/L (135-145) L 12/27/18 07:25 Potassium 4.9 mEq/L (3.5-5.2) 12/27/18 07:25 Chloride 104 mEq/L (97-110) 12/27/18 07:25 Carbon Dioxide 24 mEq/l (22-31) 12/27/18 07:25 Anion Gap 4 mEq/L (6-14) L 12/27/18 07:25 BUN 23 mg/dL (7-23) 12/27/18 07:25 Creatinine 0.8 mg/dL (0.6-1.0) 12/27/18 07:25 Estimated GFR > 60 12/27/18 07:25 Glucose 120 mg/dL (70-100) H 12/27/18 07:25 Calcium 8.6 mg/dL (8.5-10.4) 12/27/18 07:25 Total Bilirubin 0.4 mg/dL (0.1-1.4) 12/27/18 07:25 Conjugated Bilirubin 0.4 mg/dL (0.0-0.5) 12/27/18 07:25 Unconjugated Bilirubin 0.0 mg/dL (0.0-1.1) 12/27/18 07:25 AST 43 IU/L (14-46) 12/27/18 07:25 ALT 53 IU/L (9-52) H 12/27/18 07:25 Alkaline Phosphatase 79 IU/L (38-126) 12/27/18 07:25 Lactate Dehydrogenase 424 IU/L (313-618) 12/27/18 07:25 POC Troponin I 0.00 ng/mL (0.00-0.08) 12/26/18 18:07 Troponin I < 0.012 ng/mL (0.000-0.034) 12/27/18 07:25 C-Reactive Protein 228.8 mg/L (<10.0) H 12/26/18 21:18 NT-Pro-B Natriuret Pep 557 pg/mL (0-125) H 12/26/18 18:00 Total Protein 5.9 g/dL (6.3-8.2) L 12/27/18 07:25 Albumin 2.9 g/dL (3.5-5.0) L 12/27/18 07:25 TSH 1.840 uIU/mL (0.465-4.680) 12/26/18 18:00 Rheum Factor Semi-Quant 15.2 IU/L (<12.0) H 12/27/18 07:25 Visualized and Interpreted Chest x-ray results: Yes Chest X-ray Interpretation: effusion Visualized and Interpreted EKG results: Yes EKG additional interpertation: Initial atrial fibrillation was noted, but conversion to normal sinus rhythm. No ST/T wave changes have been noted Telemetry: normal sinus rhythm Echocardiogram: small pericardial effusion without tamponade physiology noted A/P Assessment: Patient is a 73 y/o female with history of HLP (on statins) with left should pains and both pleural and pericardial effusions noted (no tamponade). Elevated CRP is of concern for systemic inflammation. Stress testing was performed after patient was seen by cardiology and a small inferolateral region of reversibility was noted, with normal left ventricular systolic ejection fraction noted. Ultrasound guided thoracentesis was performed today, with fluid analysis pending. Plan: Would await the results of the fluid assessment. Appreciate the stress testing that was noted today with ischaemia to the inferolateral. This may represent the source of the patient's pains to shoulder and chest, but would not explain the effusions or the severe elevation to the CRP that is noted. We will continue to follow this patient, but would await fluid analysis prior to embarking on further invasive testing.
[2018-12-27] MEDS: ASPIRIN 325 MG TAB PO SCH (16:14)
[2018-12-27] MEDS: ENOXAPARIN 40 MG/0.4 ML SYR SC SCH (16:14)
[2018-12-27] MEDS: ATORVASTATIN CALCIUM 10 MG TAB PO SCH (17:43)
[2018-12-28] MEDS: ACETAMINOPHEN 325 MG TAB PO PRN ×5 (02:26→19:59)
[2018-12-28] MEDS: IBUPROFEN 200 MG TAB PO PRN ×3 (05:21→20:00)
[2018-12-28] MEDS: ASPIRIN 325 MG TAB PO SCH (08:25)
[2018-12-28] MEDS: ENOXAPARIN 40 MG/0.4 ML SYR SC SCH (08:33)
--- NOTE | 2018-12-28 12:19 | PDCARPN ---
Cardiology Progress Note Chief Complaint: Patient is doing well today. She might appreciate slightly better breathing today post thoracentesis. Assessment/Plan: Assessment: Patient is a 73 y/o female with history of HLP, but no HTN, CAD, or DM, with sharp, severe left shoulder pains, and shortness of breath. Work up with CT rule out PE with "moderate" pericardial effusion, but no PE. Echocardiogram with a small pericardial effusion, and no tamponade physiology. Atrial fibrillation was noted paroxysmally (at the time of admission), which was successfully treated with Amiodarone bolus. Pleural effusion was tapped without appreciation of malignant cytology noted. Stress testing yesterday with a lateral, reversible perfusion defect noted. Normal systolic ejection fraction was noted. Patient feeling well today. No cardiovascular complaints of chest pains or pressure. No PND or orthopnea. Difficult to relate the shoulder pains that have been noted (for nearly three weeks) to the defect noted on the stress testing. Plan: (1) Would continue therapy on statins for HLP (2) Will discuss the findings of the thoracentesis with Hospitalist team (3) Further discussion about coronary angiography contingent on better understanding of the etiology for the pleural/pericardial fluid presence. Subjective: No cardiovascular complaints were voiced today. Objective: Vital Signs (8 Hrs) Temp Pulse Resp BP Pulse Ox 12/28/18 08:00 36.8 C 80 16 127/75 H 92 12/28/18 04:00 36.7 C 79 20 130/77 H 92 Intake/Output (24 Hrs) 12/27/18 12/28/18 12/29/18 05:59 05:59 05:59 Intake Total 1270 1470 Output Total 300 2150 Balance 970 -680 Intake: Oral (ml) 550 1470 IV Intake (ml) 500 IV Infused (ml) 220 Amiodarone HCl 100 ml @ 100 600 mls/hr IV ONCE ONE Rx #:[id number] Amiodarone HCl 200 ml @ 120 33.333 mls/hr IV ONCE ONE Rx#:[id number] Output: Urine (ml) 300 2150 Toilet 300 2150 Other: Weight 62.2 kg Number of Voids Toilet 1 3 Number of Stools Toilet 1 Result Diagrams: 12/27/18 07:25 12/27/18 07:25 Cardiac Labs: Cardiac Lab Results (72 Hrs) 12/27/18 12/27/18 07:25 00:48 Troponin I < 0.012 < 0.012 Telemetry: normal sinus rhythm - Physical Exam Constitutional: WDWN, healthy appearing, no apparent distress Eyes: PERRL, EOMI Ears, Nose, Mouth, Throat: moist mucous membranes Cardiovascular: regular rate and rhythm, systolic murmur, pulses symmetric bilat , other ((+) rub), No jugular vein distention Peripheral Pulses: 2+: dorsalis-pedis (R), dorsalis-pedis (L) Respiratory: clear to auscultate bilat, reduced air movement (to the bases bilaterally) Gastrointestinal: normoactive bowel sounds Skin: no rashes, no edema Musculoskeletal: no muscular tenderness Neurologic: AAOx3, CN II-XII grossly intact Psychiatric: cooperative, interactive, following commands ICD10 Worksheet Patient Problems: Problems Problem Status Onset Pericardial effusion Acute Pleural effusion Acute Rapid atrial fibrillation Acute
--- NOTE | 2018-12-28 16:26 | HOSPPROG ---
Hospitalist Progress Note Assessment/Plan: #Atrial fibrillation with RVR: converted to NSR with Amio #Pleural/pericardial effusion: concern for malignancy vs autoimmune process with CRP 228 -thoracentesis yesterday, cytology pending -JACINTO, RF, cytology and pleural studies pending -need to clarify with her of cancer screening done #Hypovolemic hyponatremia: improved, Na 132 this AM #Left shoulder pain: concern for anginal equivalent. -Lexiscan showed inferior wall defect concerning for ischemia -awaiting pleural studies before other cardiac testing #Diet: regular #DVT ppx: Lovenox #Disp: inpatient admission for thorac, cardiac evaluation Subjective: Patient reports L sided shoulder pain this AM Objective: Vital Signs Temp Pulse Resp BP Pulse Ox 36.7 C 88 16 117/65 93 12/28/18 16:00 12/28/18 16:00 12/28/18 16:00 12/28/18 16:00 12/28/18 16:00 Microbiology 12/27/18 14:45 Gram Stain - Final Pleural Fluid - Aspirate Laboratory Results 12/27/18 07:25 12/27/18 07:25 12/27/18 12/28/18 12/29/18 05:59 05:59 05:59 Intake Total 1270 1470 Output Total 300 2150 Balance 970 -680 PT 14.8 SEC (12.0-15.0) 12/27/18 12:55 INR 1.14 (0.83-1.16) 12/27/18 12:55 - Physical Exam Constitutional: no apparent distress Eyes: PERRL Ears, Nose, Mouth, Throat: moist mucous membranes Cardiovascular: regular rate and rhythym Respiratory: no respiratory distress Gastrointestinal: soft, non-tender abdomen Skin: warm Musculoskeletal: full muscle strength Neurologic: AAOx3 Psychiatric: interacting appropriately ICD10 Worksheet Patient Problems: Problems Problem Status Onset Pericardial effusion Acute Pleural effusion Acute Rapid atrial fibrillation Acute
[2018-12-28] MEDS: ATORVASTATIN CALCIUM 10 MG TAB PO SCH (19:21)
[2018-12-29] MEDS: ACETAMINOPHEN 325 MG TAB PO PRN ×4 (02:20→21:09)
[2018-12-29] MEDS: IBUPROFEN 200 MG TAB PO PRN ×3 (02:21→17:24)
[2018-12-29] MEDS: ENOXAPARIN 40 MG/0.4 ML SYR SC SCH (08:32)
[2018-12-29] MEDS: ASPIRIN 325 MG TAB PO SCH (08:32)
--- NOTE | 2018-12-29 11:08 | PDCARPN ---
Cardiology Progress Note Chief Complaint: Patient doing fair today. Left ear pains are now her complaints (from the left shoulder, up into the neck and involving the left ear) Assessment/Plan: Assessment: 12-29-18 12-28-18 Patient is a 73 y/o female with history of HLP, but no HTN, CAD, or DM, with sharp, severe left shoulder pains, and shortness of breath. Work up with CT rule out PE with "moderate" pericardial effusion, but no PE. Echocardiogram with a small pericardial effusion, and no tamponade physiology. Atrial fibrillation was noted paroxysmally (at the time of admission), which was successfully treated with Amiodarone bolus. Pleural effusion was tapped without appreciation of malignant cytology noted. Stress testing yesterday with a lateral, reversible perfusion defect noted. Normal systolic ejection fraction was noted. Patient feeling well today. No cardiovascular complaints of chest pains or pressure. No PND or orthopnea. Difficult to relate the shoulder pains that have been noted (for nearly three weeks) to the defect noted on the stress testing. Plan: (1) Would continue therapy on statins for HLP (2) Will discuss the findings of the thoracentesis with Hospitalist team (3) Further discussion about coronary angiography contingent on better understanding of the etiology for the pleural/pericardial fluid presence. (4) Should fluid analysis be grossly normal, would consider angiography given the abnormal MPI testing that has been noted (5) Consider chest/abdomen/pelvis CT scan given concerns about malignancy with the signs and symptoms noted (and the pleural and pericardial fluid accumulation noted without etiology) Subjective: No cardiovascular complaints have been noted. Reviewed/Discussed With: hospitalist Objective: Vital Signs (8 Hrs) Temp Pulse Resp BP Pulse Ox 12/29/18 07:25 36.8 C 75 16 136/84 H 93 12/29/18 03:55 36.7 C 70 14 124/76 H 97 Intake/Output (24 Hrs) 12/28/18 12/29/18 12/30/18 05:59 05:59 05:59 Intake Total 1470 1645 Output Total 2150 2100 500 Balance -680 -455 -500 Intake: Oral (ml) 1470 1645 Output: Urine (ml) 2150 2100 500 Toilet 2150 2100 500 Other: Number of Voids Toilet 3 Result Diagrams: 12/29/18 03:54 12/29/18 03:54 Cardiac Labs: Cardiac Lab Results (72 Hrs) 12/27/18 12/27/18 07:25 00:48 Troponin I < 0.012 < 0.012 Telemetry: normal sinus rhythm - Physical Exam Constitutional: WDWN, healthy appearing, no apparent distress Eyes: PERRL, EOMI Ears, Nose, Mouth, Throat: moist mucous membranes Cardiovascular: regular rate and rhythm, systolic murmur, pulses symmetric bilat , other ((+) rub noted), No jugular vein distention Peripheral Pulses: 2+: dorsalis-pedis (R), dorsalis-pedis (L) Respiratory: clear to auscultate bilat, reduced air movement (to the bases bilaterally) Gastrointestinal: normoactive bowel sounds Skin: no rashes, no edema Musculoskeletal: no muscular tenderness Neurologic: AAOx3, CN II-XII grossly intact Psychiatric: cooperative, interactive, following commands ICD10 Worksheet Patient Problems: Problems Problem Status Onset Pericardial effusion Acute Pleural effusion Acute Rapid atrial fibrillation Acute
--- NOTE | 2018-12-29 15:04 | HOSPPROG ---
Hospitalist Progress Note Assessment/Plan: #Atrial fibrillation with RVR: converted to NSR with Amio #Pleural/pericardial effusion: concern for malignancy vs autoimmune process with CRP 228 -thoracentesis on 12/27, cytology pending -JACINTO, RF, cytology and pleural studies pending - CT C/A/P to be performed this afternoon #Hypovolemic hyponatremia: improved, Na 135 this AM #Left shoulder pain: concern for anginal equivalent. -Lexiscan showed inferior wall defect concerning for ischemia -awaiting pleural studies before other cardiac testing #Diet: regular #DVT ppx: Lovenox #Disp: inpatient admission for thorac, cardiac evaluation Subjective: Patient reports continued shoulder pain this AM Objective: Vital Signs Temp Pulse Resp BP Pulse Ox 36.6 C 73 20 121/77 H 91 L 12/29/18 11:30 12/29/18 11:30 12/29/18 11:30 12/29/18 11:30 12/29/18 11:30 Microbiology 12/27/18 14:45 Gram Stain - Final Pleural Fluid - Aspirate Laboratory Results 12/29/18 03:54 12/29/18 03:54 12/28/18 12/29/18 12/30/18 05:59 05:59 05:59 Intake Total 1470 1645 Output Total 2150 2100 800 Balance -680 -455 -800 PT 14.8 SEC (12.0-15.0) 12/27/18 12:55 INR 1.14 (0.83-1.16) 12/27/18 12:55 - Physical Exam Constitutional: no apparent distress Eyes: PERRL Ears, Nose, Mouth, Throat: moist mucous membranes Cardiovascular: regular rate and rhythym Respiratory: no respiratory distress Gastrointestinal: soft, non-tender abdomen Skin: warm Musculoskeletal: pain with ROM Neurologic: AAOx3 Psychiatric: interacting appropriately ICD10 Worksheet Patient Problems: Problems Problem Status Onset Pericardial effusion Acute Pleural effusion Acute Rapid atrial fibrillation Acute
--- NOTE | 2018-12-29 15:52 | ASMTCMCOM ---
CM Note CM Note Notes: 12/29/2018 Case Management Note Discussed pt during rounds this morning. Awaiting cytology results to determine next steps with medical treament. Discussed with MD who ordered therapy evals. Case Management d/c poc: to be determined. Case Management to follow. Date Signed: 12/29/2018 03:52 PM Electronically Signed By:Mylene Barclay RN
[2018-12-29] MEDS ORDERED: IOHEXOL 300 mgI/ML (OMNIPAQUE) 150 ML BTL IV ONE (16:47)
[2018-12-29] MEDS: SIMVASTATIN 20MG PO SCH (18:45)
[2018-12-30] MEDS: IBUPROFEN 200 MG TAB PO PRN ×3 (00:54→16:59)
[2018-12-30] MEDS: ACETAMINOPHEN 325 MG TAB PO PRN ×4 (04:49→23:41)
[2018-12-30] MEDS: ASPIRIN 325 MG TAB PO SCH (09:23)
--- NOTE | 2018-12-30 14:52 | HOSPPROG ---
Hospitalist Progress Note Assessment/Plan: #Atrial fibrillation with RVR: converted to NSR with Amio #Pleural/pericardial effusion: concern for malignancy vs autoimmune process with CRP 228 -thoracentesis on 12/27, cytology with no malignant cells -CT C/A/P performed on 12/29 which shows stable L sided pleural effusion, new small R sided effusion -CT also showed thickened galbladder wall, galbladder carcinoma vs. chronic cholecystitis -RUQ U/S this AM shows galbladder completely opacified with shadowing calculi and sludge with galbladder wall thickening consistent with acute vs. chronic cholecystitis. CBD WNL Acute vs. Chronic Cholecystitis - CT and U/S findings as above - Patient without any RUQ Pain, N/V, likely chronic cholecystitis - Will discuss findings with Cardiology this afternoon as well as consult surgery to evaluate for cholecystectomy #Hypovolemic hyponatremia: improved, Na 135 on 12/29, continue to monitor #Left shoulder pain: concern for anginal equivalent. -Lexiscan showed inferior wall defect concerning for ischemia - Discussion with Cardiology as above - Continue daily ASA - COntinue Tylenol, Ibuprofen for pain, adding Lidocaine patch #Diet: regular #DVT ppx: Lovenox #Disp: inpatient admission for thorac, cardiac evaluation Subjective: Patient reports no complaints this afternoon Objective: Vital Signs Temp Pulse Resp BP Pulse Ox 36.7 C 91 18 149/97 H 90 L 12/30/18 10:57 12/30/18 10:57 12/30/18 10:57 12/30/18 10:57 12/30/18 10:57 Microbiology 12/27/18 14:45 Gram Stain - Final Pleural Fluid - Aspirate Laboratory Results 12/29/18 03:54 12/29/18 03:54 12/29/18 12/30/18 12/31/18 05:59 05:59 05:59 Intake Total 1645 1020 240 Output Total 2100 2900 800 Balance -455 -1880 -560 PT 14.8 SEC (12.0-15.0) 12/27/18 12:55 INR 1.14 (0.83-1.16) 12/27/18 12:55 - Physical Exam Constitutional: no apparent distress Eyes: PERRL Ears, Nose, Mouth, Throat: moist mucous membranes Cardiovascular: regular rate and rhythym Respiratory: no respiratory distress Gastrointestinal: soft, non-tender abdomen Genitourinary: no bladder fullness Skin: warm Musculoskeletal: full muscle strength Neurologic: AAOx3 Psychiatric: interacting appropriately ICD10 Worksheet Patient Problems: Problems Problem Status Onset Pericardial effusion Acute Pleural effusion Acute Rapid atrial fibrillation Acute
--- NOTE | 2018-12-30 15:59 | PDCARPN ---
Cardiology Progress Note Chief Complaint: No cardiovascular complaints today. Feeling well. Ongoing left shoulder pains. Assessment/Plan: Assessment: 12-30-18 Patient doing well today. Pleural fluid did not have malignant cells noted. CT of chest and abdomen yesterday with findings concerning for cholecystitis ( more chronic than acute?). No voiced abdominal pains. No chest pains or pressure. Given the CT scan results, the patient had ultrasound today, which had both acute and chronic findings of cholecystitis. Recommendations (per radiology) were for surgical consult. 12-28-18 Patient is a 73 y/o female with history of HLP, but no HTN, CAD, or DM, with sharp, severe left shoulder pains, and shortness of breath. Work up with CT rule out PE with "moderate" pericardial effusion, but no PE. Echocardiogram with a small pericardial effusion, and no tamponade physiology. Atrial fibrillation was noted paroxysmally (at the time of admission), which was successfully treated with Amiodarone bolus. Pleural effusion was tapped without appreciation of malignant cytology noted. Stress testing yesterday with a lateral, reversible perfusion defect noted. Normal systolic ejection fraction was noted. Patient feeling well today. No cardiovascular complaints of chest pains or pressure. No PND or orthopnea. Difficult to relate the shoulder pains that have been noted (for nearly three weeks) to the defect noted on the stress testing. Plan: (1) Given the gall bladder pathology, would consider surgery consult and discussion about options - patient does have an abnormal stress test, but would prefer to have surgery ( if indicated/needed) PRIOR to heart cath - location and size would not confer "high" risk given possible need for ASA and antiplatelet therapy after cath ( which would complicate the surgical plans) (2) Continue therapy on statins for HLP (3) Cardiology will follow this patient over hospital stay Subjective: No cardiovascular complaints Reviewed/Discussed With: family, hospitalist Objective: Vital Signs (8 Hrs) Temp Pulse Resp BP Pulse Ox 12/30/18 15:54 36.8 C 81 13 128/72 H 92 12/30/18 10:57 36.7 C 91 18 149/97 H 90 L Intake/Output (24 Hrs) 12/29/18 12/30/18 12/31/18 05:59 05:59 05:59 Intake Total 1645 1020 240 Output Total 2100 2900 800 Balance -455 -1880 -560 Intake: Oral (ml) 1645 1020 240 Output: Urine (ml) 2100 2900 800 Toilet 2100 2900 800 Other: Intake Quantity Yes Sufficient Number of Voids Toilet 3 1 Number of Stools Toilet 2 Result Diagrams: 12/29/18 03:54 12/29/18 03:54 Telemetry: normal sinus rhythm - Physical Exam Constitutional: WDWN, healthy appearing, no apparent distress Eyes: PERRL, EOMI Ears, Nose, Mouth, Throat: moist mucous membranes Cardiovascular: regular rate and rhythm, other ((+) rub) Peripheral Pulses: 2+: dorsalis-pedis (R), dorsalis-pedis (L) Respiratory: clear to auscultate bilat, reduced air movement Gastrointestinal: normoactive bowel sounds Skin: no rashes, no edema Musculoskeletal: no muscular tenderness Neurologic: AAOx3, CN II-XII grossly intact Psychiatric: cooperative, interactive, following commands ICD10 Worksheet Patient Problems: Problems Problem Status Onset Pericardial effusion Acute Pleural effusion Acute Rapid atrial fibrillation Acute
[2018-12-30] MEDS: LIDOCAINE 4%/MENTHOL 1% PATCH TD SCH (17:00)
[2018-12-30] MEDS: ENOXAPARIN 40 MG/0.4 ML SYR SC SCH (17:01)
[2018-12-30] MEDS: SIMVASTATIN 20MG PO SCH (17:02)
--- NOTE | 2018-12-30 17:48 | GCON ---
[f rep st] CONSULTATION DATE OF CONSULTATION: 12/30/2018 CHIEF COMPLAINT: Cholecystitis. HISTORY OF PRESENT ILLNESS: The patient is a 73-year-old woman with no significant past medical hist ory who presented to [facility] Emergency Department on December 26, 2018, complaining of left shoulder pain and shortness of breath. Chest CTA showed a left-sided pleural effusion and p ericardial effusion. She was admitted for further thoracic and cardiac testing. A CT of the chest, abdomen, and pelvis was ordered while pleural studies were pending, which revealed circumferential ga llbladder thickening with no ductal dilatation. A subsequent right upper quadrant ultrasound showed a completely opacified gallbladder, with shadowing calculi and sludge within the gallbladder, with th ickening up to 3 mm. The patient denies abdominal pain, nausea, vomiting, and referred right shoulde r pain. She reports normal bowel movements and denies fever and chills. ALLERGIES: Meloxicam. HOME MEDICATIONS: Simvastatin 20 mg daily. Tylenol 325 mg, 650 mg p.o. q.4 hours p.r.n. pain. Ibup rofen 200 mg p.o. q.6 hours p.r.n. pain. PAST MEDICAL HISTORY: Hyperlipidemia, arthritis. PAST SURGICAL HISTORY: Noncontributory. FAMILY HISTORY: Noncontributory. SOCIAL HISTORY: Nonsmoker. No alcohol use. REVIEW OF SYSTEMS: 10-point review of systems negative unless otherwise specified in history of pres ent illness. PHYSICAL EXAM: GENERAL: Pleasant, well-nourished and well-groomed woman, sitting upright in bed. N o acute distress. HEENT: Normocephalic. No gross hearing deficits, mucous membranes moist. Eyes: No scleral icterus, no injection, pupils are equal in size. LUNGS: No increased work of breathing. CARDIAC: Regular rate. No lower extremity edema. ABDOMEN: Bowel sounds present, soft, nontender, nondistended. No peritoneal signs noted. Negative Holcomb s ign. MUSCULOSKELETAL: Normal gait. Normal nails. SKIN: Warm and dry. PSYCH: Mood and affect no rmal. ASSESSMENT AND PLAN: 73-year-old otherwise healthy woman with incidental finding of cholecystitis. Because she is completely asymptomatic, no elevated white count or liver function tests, this is most likely chronic cholecystitis and does not require a cholecystectomy. Concern for malignancy is low with thoracentesis cytology negative for malignant cells. I discussed with her that cholelithiasis c ould potentially cause problems in the future, requiring removal. Because she has several internatio nal trips planned this year, she has the option of an elective cholecystectomy if she chooses. She h as a potential heart surgery with placement of stents pending and I discussed with her that a cholecy stectomy can still be done in the future, even on anticoagulation. I discussed the risks of zenaida hannon including, but not limited to stroke, heart attack, , and blood clots. We also discussed that she could have an infection (superficial or deep), bleeding, possibility of converting to open, vivien ge to surrounding structures such as the bowel or blood vessels, or damage to the bile duct. I gave the patient my information and she will contact me if she decides to proceed with surgery for cholecy stectomy. /[id number]/MODL
[2018-12-30] MEDS: PATCH REMOVAL 1 EA PATCH TD SCH (23:45)
[2018-12-31] MEDS: IBUPROFEN 200 MG TAB PO PRN ×2 (03:45→11:22)
[2018-12-31] MEDS: ACETAMINOPHEN 325 MG TAB PO PRN ×2 (06:40→14:39)
--- NOTE | 2018-12-31 11:57 | PDCARPN ---
Cardiology Progress Note Assessment/Plan: Assessment/plan: 73-year-old female with a history of dyslipidemia but no other known cardiovascular disease. She is admitted through the ER with left shoulder pain that has been present for about a month and new onset exertional dyspnea that has been present for about a week. I reviewed her nuclear stress test, echocardiogram, EKGs. Findings this admission have included pericardial effusion, pleural effusion status post thoracentesis that was negative for malignant cells. She has markedly elevated CRP and an elevated rheumatoid factor. Because of ongoing pain she did have a nuclear stress test notable for equivocal inferolateral defect suggestive but not diagnostic of infarct with lexi-infarct ischemia. Ejection fraction is preserved and she has normal wall motion. 1. Shoulder pain and abnormal nuclear stress test: I have reviewed her chest CTs since admission. She does not have significant coronary calcification. Her nuclear stress test is equivalent. Troponins have been negative. She has a pericardial effusion, elevated inflammatory markers, no friction rub on exam. I doubt that she has obstructive coronary disease. We will not perform invasive coronary angiography but we will perform CT coronary angiography for more definitive assessment, although as mentioned I think it is unlikely she has obstructive coronary disease. I am concerned that she may have an underlying rheumatological process manifest as her joint pain, effusions, an elevated CRP. Outpatient Rheumatology consult. 2. Pericardial effusion/pericarditis: Continue ibuprofen. I will add colchicine. Etiology includes viral versus rheumatological versus a path. No indications for pericardiocentesis at this time as the effusion is small, not causing tamponade on echo, and she is hemodynamically stable. 3. Atrial fibrillation: She presented with atrial fibrillation and has converted to sinus rhythm with a dose of amiodarone. This is likely related to her pericarditis. Her CHADS2 Vasc score is technically 2. Could consider outpatient monitoring to make sure zone of recurrent atrial fibrillation. Continue aspirin for now. 4. Anemia: This may be related to underlying systemic disease. No evidence of active bleeding. 5. Dyslipidemia. Continue simvastatin. 6. Cholelithiasis: She had a right upper quadrant ultrasound showing findings of cholecystitis, possibly chronic. She has been evaluated by Dr. Ahn and there is no indication for surgery at this time. She is asymptomatic from a gastrointestinal standpoint. 12/31/18 12:02 Subjective: She has ongoing left shoulder pain. This is improved when she takes ibuprofen and Tylenol. She did have 1 episode of chest pain several days ago when she rolled over in bed onto her right side. This resolved when she went back onto her back. She remains dyspneic with exertion. She has not had a fever or rash. She does not have subjective joint swelling. No abdominal pain, nausea or vomiting. Reviewed/Discussed With: family, hospitalist Time Spent with Patient: greater than 25 minutes Time Spent with Patient: Greater than 25 minutes spent on this patients care, greater than 50% of time spent counseling, educating, and coordinating care regarding the above mentioned plan. Objective: Vital Signs (8 Hrs) Temp Pulse Resp BP Pulse Ox 12/31/18 08:00 37.1 C 97 17 110/76 92 12/31/18 04:00 37.2 C 99 16 137/79 H 94 Intake/Output (24 Hrs) 12/30/18 12/31/18 01/01/19 05:59 05:59 05:59 Intake Total 1020 1045 Output Total 2900 2050 Balance -1880 -1005 Intake: Oral (ml) 1020 1045 Output: Urine (ml) 2900 2050 Toilet 2900 2050 Other: Intake Quantity Yes Sufficient Number of Voids Toilet 3 2 Number of Stools Toilet 2 No acute distress. JVP less than 10. Regular rate and rhythm with 2 component friction rub. Lungs clear bilaterally wheeze rhonchi rales Abdomen soft and nontender no obvious masses No lower extremity edema Neuro alert and oriented x3 without gross focal neurologic deficits. Appropriate mood and affect. Result Diagrams: 12/31/18 03:50 12/31/18 03:50 EKG: Serial tracings reviewed. 1st 2 atrial fibrillation. No ischemia. Telemetry: Sinus rhythm Echocardiogram: Reviewed. Normal LV systolic function and normal wall motion. Small pericardial effusion without tamponade. ICD10 Worksheet Patient Problems: Problems Problem Status Onset Pericardial effusion Acute Pleural effusion Acute Rapid atrial fibrillation Acute
[2018-12-31] MEDS ORDERED: METOPROLOL TARTRATE 25 MG TAB PO ONE ×2 (11:58→14:54)
[2018-12-31] MEDS: ENOXAPARIN 40 MG/0.4 ML SYR SC SCH (12:19)
[2018-12-31] MEDS: COLCHICINE 0.6 MG CAP/TAB PO SCH (12:19)
[2018-12-31] MEDS: ASPIRIN 325 MG TAB PO SCH (12:19)
[2018-12-31] MEDS: PANTOPRAZOLE SODIUM 40 MG TAB PO SCH (12:19)
[2018-12-31] MEDS: LIDOCAINE 4%/MENTHOL 1% PATCH TD SCH ×2 (12:23→21:32)
--- NOTE | 2018-12-31 14:24 | HOSPPROG ---
Hospitalist Progress Note Assessment/Plan: #Left shoulder pain: - Cardiology following, seen by Dr. Moy, nuclear stress test is equivalent, Troponin have been negative - Pericardial effusion is present, elevated CRP indicating likely Pericarditis as etiology of pain - Cardiology recommends Coronary CTA to further assess for obstructive coronary disease - Continue daily ASA - Continue Tylenol, Ibuprofen for pain, adding Lidocaine patch #Pleural/pericardial effusion/Pericarditis: concern for autoimmune process -thoracentesis on 12/27, cytology with no malignant cells -CT C/A/P performed on 12/29 which shows stable L sided pleural effusion, new small R sided effusion -CT also showed thickened galbladder wall, galbladder carcinoma vs. chronic cholecystitis -Cardiology started scheduled Ibuprofen as well as colchicine this AM to treat pericarditis -Patient will need an outpatient Rheumatology consult to further evaluate Chronic Cholecystitis - CT and U/S findings as above - Patient without any RUQ Pain, N/V, likely chronic cholecystitis - Consulted surgery on 12/30 who recommend no acute surgical management, patient may f/u in the future as an outpatient #Hypovolemic hyponatremia: improved, Na 135 on 12/29, continue to monitor #Atrial fibrillation with RVR: - converted to NSR with Amio on admission, was not continued - Likely related to Pericarditis - Continue ASA - May need outpatient monitoring per cardiology #Diet: regular #DVT ppx: Lovenox #Disp: inpatient admission for cardiac evaluation A Subjective: Patient reports L shoulder pain this AM Objective: Vital Signs Temp Pulse Resp BP Pulse Ox 37.0 C 74 16 119/70 93 12/31/18 13:46 12/31/18 13:46 12/31/18 13:46 12/31/18 13:46 12/31/18 13:46 Microbiology 12/27/18 14:45 Gram Stain - Final Pleural Fluid - Aspirate Laboratory Results 12/31/18 03:50 12/31/18 03:50 12/30/18 12/31/18 01/01/19 05:59 05:59 05:59 Intake Total 1020 1045 Output Total 2900 2050 400 Balance -1880 -1005 -400 PT 14.8 SEC (12.0-15.0) 12/27/18 12:55 INR 1.14 (0.83-1.16) 12/27/18 12:55 - Physical Exam Constitutional: no apparent distress Eyes: PERRL Ears, Nose, Mouth, Throat: moist mucous membranes Cardiovascular: regular rate and rhythym Respiratory: no respiratory distress Gastrointestinal: normoactive bowel sounds Skin: warm Musculoskeletal: full muscle strength Neurologic: AAOx3 Psychiatric: interacting appropriately ICD10 Worksheet Patient Problems: Problems Problem Status Onset Pericardial effusion Acute Pleural effusion Acute Rapid atrial fibrillation Acute
--- NOTE | 2018-12-31 14:47 | ASMTCMCOM ---
CM Note CM Note Notes: 12/31/2018 Case Management Note Discussed pt during rounds this morning. PT eval cleared pt to return home independent. Case Management d/c poc: independent with follow up as directed. Case Management available if needs change. Date Signed: 12/31/2018 02:47 PM Electronically Signed By:Mylene Barclay RN
[2018-12-31] MEDS ORDERED: IOHEXOL 350mgI/ML (OMNIPAQUE) 150 ML BTL IV ONE (15:42)
[2018-12-31] MEDS ORDERED: NS 1,000 ML IV SCH (16:00)
[2018-12-31] MEDS ORDERED: NITROGLYCERIN 0.4 MG BTL SL ONE (16:23)
[2018-12-31] MEDS: IBUPROFEN 200 MG TAB PO SCH (17:28)
[2018-12-31] MEDS: SIMVASTATIN 20MG PO SCH (17:31)
[2019-01-01] MEDS: IBUPROFEN 200 MG TAB PO SCH ×6 (01:59→19:56)
[2019-01-01] MEDS: PATCH REMOVAL 1 EA PATCH TD SCH ×2 (02:00→21:15)
--- NOTE | 2019-01-01 08:55 | PDCARPN ---
Cardiology Progress Note Assessment/Plan: Assessment/plan: 73-year-old female with a history of dyslipidemia but no other known cardiovascular disease. She is admitted through the ER with left shoulder pain that has been present for about a month and new onset exertional dyspnea that has been present for about a week. Findings this admission have included pericardial effusion and pleural effusion status post thoracentesis that was negative for malignant cells. She has markedly elevated CRP and an elevated rheumatoid factor. Because of ongoing pain she did have a nuclear stress test notable for equivocal inferolateral defect suggestive but not diagnostic of infarct with lexi-infarct ischemia. Ejection fraction is preserved and she has normal wall motion. 1. Shoulder pain, ear pain and abnormal nuclear stress test: Her nuclear stress test is equivalent. CT coronary angiogram 01/01 shows no obstructive CAD. Troponins have been negative. She has a pericardial effusion, elevated inflammatory markers, and a friction rub on exam. I am concerned that she may have an underlying rheumatological process manifest as her joint pain, effusions , an elevated CRP. Outpatient Rheumatology consult. 2. Pericardial effusion/pericarditis: Continue ibuprofen scheduled for one additional week. Renal and GI risks were reviewed with the patient. Colchicine for 3 months. Check CBC q 2-4 weeks while on colchicine. Etiology includes viral versus rheumatological. No indications for pericardiocentesis at this time as the effusion is small, not causing tamponade on echo, and she is hemodynamically stable. Will repeat limited echo today to reassess effusion. Protonix while on NSAIDS. 3. Atrial fibrillation: She presented with atrial fibrillation and has converted to sinus rhythm with a dose of amiodarone. This is likely related to her pericarditis. Her CHADS2 Vasc score is technically 2. Could consider outpatient monitoring to assess for recurrent atrial fibrillation. Continue aspirin for now. 4. Anemia: This may be related to underlying systemic disease. No evidence of active bleeding. 5. Dyslipidemia. Continue simvastatin. 6. Cholelithiasis: She had a right upper quadrant ultrasound showing findings of cholecystitis, possibly chronic. She has been evaluated by Dr. Ahn and there is no indication for surgery at this time. She is asymptomatic from a gastrointestinal standpoint. If she ambulates without SOB and has stable to improved pericardial effusion on today's echo she may be discharged from a cardiac standpoint. Follow up with me in 2-4 weeks. 01/01/19 08:57 Subjective: She feels better. No dyspnea at rest. When she takes deep breath there is no upper back discomfort. She no longer has left shoulder pain but is complaining of left ear pain that is intermittent. No chest pain. No nausea vomiting or abdominal pain. She is eating normally. Time Spent with Patient: greater than 25 minutes Time Spent with Patient: Greater than 25 minutes spent on this patients care, greater than 50% of time spent counseling, educating, and coordinating care regarding the above mentioned plan. Objective: Vital Signs (8 Hrs) Temp Pulse Resp BP Pulse Ox 01/01/19 07:55 37.0 C 80 18 123/79 H 92 01/01/19 02:47 36.4 C 114 H 18 129/88 H 95 Intake/Output (24 Hrs) 12/31/18 01/01/19 01/02/19 05:59 05:59 05:59 Intake Total 1045 1400 Output Total 2050 2600 Balance -1005 -1200 Intake: Oral (ml) 1045 1250 IV Infused (ml) 150 Ns 1,000 ml @ 75 mls/hr 150 IV CONT KATIE Rx#: [id number] Output: Urine (ml) 2049 2600 Toilet 2050 2600 Other: Weight 60.1 kg Intake Quantity Yes Sufficient Number of Voids Toilet 2 1 No acute distress. JVP less than 10. Regular rate and rhythm with much improved friction rub. No murmur. Lungs clear to auscultation bilaterally wheeze rhonchi rales No lower extremity edema Result Diagrams: 12/31/18 03:50 01/01/19 02:40 Telemetry: Sinus rhythm ICD10 Worksheet Patient Problems: Problems Problem Status Onset Pericardial effusion Acute Pleural effusion Acute Rapid atrial fibrillation Acute
[2019-01-01] MEDS: ASPIRIN 325 MG TAB PO SCH (08:57)
[2019-01-01] MEDS: ENOXAPARIN 40 MG/0.4 ML SYR SC SCH (08:57)
[2019-01-01] MEDS: COLCHICINE 0.6 MG CAP/TAB PO SCH (08:58)
[2019-01-01] MEDS: PANTOPRAZOLE SODIUM 40 MG TAB PO SCH (08:58)
--- NOTE | 2019-01-01 11:59 | HOSPPROG ---
Hospitalist Progress Note Assessment/Plan: #Left shoulder pain: - Cardiology following, seen by Dr. Moy, nuclear stress test is equivalent, Troponin have been negative - Pericardial effusion is present, elevated CRP indicating likely Pericarditis as etiology of pain - S/p Coronary CTA on 12/31 with no significant stenosis or atherosclerotic plaque in LAD, L circumflex, or RCA - Continue daily ASA - Continue scheduled Ibuprofen, Colchicine as below #Pleural/pericardial effusion/Pericarditis: concern for autoimmune process -thoracentesis on 12/27, cytology with no malignant cells -CT C/A/P performed on 12/29 which shows stable L sided pleural effusion, new small R sided effusion -CT also showed thickened galbladder wall, galbladder carcinoma vs. chronic cholecystitis -Cardiology started scheduled Ibuprofen as well as colchicine on 12/31 to treat pericarditis -Patient will need an outpatient Rheumatology consult to further evaluate -Cardiology ordered repeat TTE today to evaluate pericardial effusion Chronic Cholecystitis - CT and U/S findings as above - Patient without any RUQ Pain, N/V, likely chronic cholecystitis - Consulted surgery on 12/30 who recommend no acute surgical management, patient may f/u in the future as an outpatient #Hypovolemic hyponatremia:Na 132 this AM, continue to monitor #Atrial fibrillation with RVR: - converted to NSR with Amio on admission, was not continued - Likely related to Pericarditis - Continue ASA - May need outpatient monitoring per cardiology #Diet: regular #DVT ppx: Lovenox #Disp: inpatient admission for cardiac evaluation, likely d/c tomorrow A Subjective: Patient reports resolution of L shoulder pain this AM Objective: Vital Signs Temp Pulse Resp BP Pulse Ox 37.0 C 80 18 123/79 H 92 01/01/19 07:55 01/01/19 07:55 01/01/19 07:55 01/01/19 07:55 01/01/19 07:55 Microbiology 12/27/18 14:45 Gram Stain - Final Pleural Fluid - Aspirate Laboratory Results 12/31/18 03:50 01/01/19 02:40 12/31/18 01/01/19 01/02/19 05:59 05:59 05:59 Intake Total 1045 1400 500 Output Total 2050 2600 400 Balance -1005 -1200 100 PT 14.8 SEC (12.0-15.0) 12/27/18 12:55 INR 1.14 (0.83-1.16) 12/27/18 12:55 - Physical Exam Constitutional: no apparent distress Eyes: PERRL Ears, Nose, Mouth, Throat: moist mucous membranes Cardiovascular: regular rate and rhythym Respiratory: no respiratory distress Gastrointestinal: soft, non-tender abdomen Skin: warm Musculoskeletal: full muscle strength Neurologic: AAOx3 Psychiatric: interacting appropriately ICD10 Worksheet Patient Problems: Problems Problem Status Onset Pericardial effusion Acute Pleural effusion Acute Rapid atrial fibrillation Acute
--- NOTE | 2019-01-01 13:40 | ECHO ---
[email or web address] [address] [address] Main: [phone] Fax: Transthoracic Echocardiogram Name: REESE PAT MR#: [id number] Study Date: 01/01/2019 Study Time: 11:58 AM Date of : 1945 Age: 73 year(s) Height: 165.1 cm (65 in.) Weight: 59.87 kg (132 lb.) BSA: 1.66 m2 Gender: Female Examination: Limited Echo Indication: Re eval EF and pericardial effusion Image Quality: Excellent Contrast: Requested by: Francisca Moy BP: 123 mmHg/79 mmHg Heart Rate: Rhythm: Indication: Re eval EF and pericardial effusion Procedure Staff Retarder Operator: Emerita Kaufman RDCS Reading Physician: Francisca Moy MD Requesting Provider: Conclusions: Normal global systolic LV function. The ejection fraction is estimated to be 65-70 %. Left side pleural effusion. Triviial to small pericardial effusion.. Compared directly with 12/26/2018 cardial effusion is stable to slightly improved. No evidence of tamponade. Measurements: Chambers Valvular Assessment AV/MV Valvular Assessment TV/PV Normal Normal Normal Name Value Range Name Value Range Name Value Range EF Range: 65-70 % Continued Measurements: Findings: Left Ventricle: Normal global systolic LV function. The ejection fraction is estimated to be 65-70 %. Mitral Valve: Mild mitral valve regurgitation is present. Aortic Valve: The aortic valve is tri-leaflet. Tricuspid Valve: Mild tricuspid regurgitation is present. Pericardium: Left side pleural effusion. Triviial to small pericardial effusion.. Patient: REESE PAT Study Date: 01/01/2019 Page 1 of 2 11:58 AM (No Signature Object) Patient: REESE PAT Study Date: 01/01/2019 Page 2 of 2 11:58 AM [id number]
[2019-01-01] MEDS: LIDOCAINE 4%/MENTHOL 1% PATCH TD SCH ×2 (15:43→19:02)
[2019-01-01] MEDS: SIMVASTATIN 20MG PO SCH (17:06)
[2019-01-02] MEDS: IBUPROFEN 200 MG TAB PO SCH ×3 (04:58→21:07)
[2019-01-02] MEDS: COLCHICINE 0.6 MG CAP/TAB PO SCH (08:38)
[2019-01-02] MEDS: ENOXAPARIN 40 MG/0.4 ML SYR SC SCH (08:38)
[2019-01-02] MEDS: PANTOPRAZOLE SODIUM 40 MG TAB PO SCH (08:38)
--- NOTE | 2019-01-02 09:03 | PDCARPN ---
Cardiology Progress Note Assessment/Plan: Assessment/plan: 73-year-old female with a history of dyslipidemia but no other known cardiovascular disease. She is admitted through the ER with left shoulder pain that has been present for about a month and new onset exertional dyspnea that has been present for about a week. Findings this admission have included pericardial effusion and pleural effusion status post thoracentesis that was negative for malignant cells. She has markedly elevated CRP and an elevated rheumatoid factor. Because of ongoing pain she did have a nuclear stress test notable for equivocal inferolateral defect suggestive but not diagnostic of infarct with lexi-infarct ischemia. Ejection fraction is preserved and she has normal wall motion. 1. Shoulder pain, ear pain and abnormal nuclear stress test: Her nuclear stress test is equivalent. CT coronary angiogram 01/01 shows no obstructive CAD. Troponins have been negative. She has a pericardial effusion, elevated inflammatory markers, and a friction rub on exam. I am concerned that she may have an underlying rheumatological process manifest as her joint pain, effusions , an elevated CRP. Outpatient Rheumatology consult. 2. Pericardial effusion/pericarditis: Continue ibuprofen scheduled for one additional week. Renal and GI risks were reviewed with the patient. Colchicine for 3 months. Check CBC q 2-4 weeks while on colchicine. Etiology includes viral versus rheumatological. No indications for pericardiocentesis at this time as the effusion is small, not causing tamponade on echo, and she is hemodynamically stable. Repeat limited echo on 01/01 showed stable to improved pericardial effusion. Protonix while on NSAIDS. Will try Lasix 20 mg IV x1 today to see if this can improve her dyspnea. 3. Atrial fibrillation: She presented with atrial fibrillation and has converted to sinus rhythm with a dose of amiodarone. This is likely related to her pericarditis. Her CHADS2 Vasc score is technically 2. Could consider outpatient monitoring to assess for recurrent atrial fibrillation. Continue aspirin for now. 4. Anemia: This may be related to underlying systemic disease. No evidence of active bleeding. 5. Dyslipidemia. Continue simvastatin. 6. Cholelithiasis: She had a right upper quadrant ultrasound showing findings of cholecystitis, possibly chronic. She has been evaluated by Dr. Ahn and there is no indication for surgery at this time. She is asymptomatic from a gastrointestinal standpoint. She will follow-up with Dr. Ahn as an outpatient. 01/02/19 09:37 Subjective: She still has intermittent shoulder pain. She is mildly dyspneic when walking. No chest pain, nausea or vomiting. Eating normally. Reviewed/Discussed With: hospitalist (Dr. Dee) Time Spent with Patient: greater than 25 minutes Time Spent with Patient: Greater than 25 minutes spent on this patients care, greater than 50% of time spent counseling, educating, and coordinating care regarding the above mentioned plan. Objective: Vital Signs (8 Hrs) Temp Pulse Resp BP Pulse Ox 01/02/19 07:52 36.9 C 76 18 128/74 H 89 L 01/02/19 04:00 36.7 C 89 20 135/84 H 91 L 01/02/19 03:15 85 L Intake/Output (24 Hrs) 01/01/19 01/02/19 01/03/19 05:59 05:59 05:59 Intake Total 1400 2760 Output Total 2600 2875 Balance -1200 -115 Intake: Oral (ml) 1250 2760 IV Infused (ml) 150 Ns 1,000 ml @ 75 mls/hr 150 IV CONT KATIE Rx#: [id number] Output: Urine (ml) 2600 2875 Toilet 2600 2875 Other: Weight 60.1 kg 60.192 kg Intake Quantity Yes Yes Sufficient Number of Voids Toilet 1 No acute distress. JVP less than 10. Regular rate and rhythm with very soft friction rub. No murmur or gallop. Decreased breath sounds at both bases. No wheezes rhonchi rales No lower extremity edema Result Diagrams: 12/31/18 03:50 01/02/19 03:45 ICD10 Worksheet Patient Problems: Problems Problem Status Onset Pericardial effusion Acute Pleural effusion Acute Rapid atrial fibrillation Acute
[2019-01-02] MEDS ORDERED: FUROSEMIDE 20 MG/2 ML VIAL IVP ONE ×2 (09:36→13:30)
[2019-01-02] MEDS ORDERED: FUROSEMIDE 40 MG/4 ML VIAL ONE (13:08)
[2019-01-02] MEDS: LIDOCAINE 4%/MENTHOL 1% PATCH TD SCH (14:22)
--- NOTE | 2019-01-02 14:24 | ASMTCMCOM ---
CM Note CM Note Notes: Met with pt at RN's request. Pt was unclear about the meaning of Medicare letter she received at time of admission. CM informed pt that the letter she received during her admission explained her rights as a Medicare recipient. Also informed her she would receive the IM letter when she discharges. Pt also concerned about asking her for too much assistance after she gets home and would like to have the [employer] Whe[employer] Homecoming for 5 days. CM to arrange MOW. PT/OT have cleared pt. CM to follow for any d/c needs. D/C plan: home independent, with MOW Date Signed: 01/02/2019 02:23 PM Electronically Signed By:BELLO Pitts
--- NOTE | 2019-01-02 15:37 | HOSPPROG ---
Hospitalist Progress Note Assessment/Plan: #Left shoulder pain: - Cardiology following, seen by Dr. Moy, nuclear stress test is equivalent, Troponin have been negative - Pericardial effusion is present, elevated CRP indicating likely Pericarditis as etiology of pain - S/p Coronary CTA on 12/31 with no significant stenosis or atherosclerotic plaque in LAD, L circumflex, or RCA - Continue daily ASA - Continue scheduled Ibuprofen, Colchicine as below #Pleural/pericardial effusion/Pericarditis: concern for autoimmune process -thoracentesis on 12/27, cytology with no malignant cells -CT C/A/P performed on 12/29 which shows stable L sided pleural effusion, new small R sided effusion -CT also showed thickened galbladder wall, galbladder carcinoma vs. chronic cholecystitis -Cardiology started scheduled Ibuprofen as well as colchicine on 12/31 to treat pericarditis -Patient will need an to further evaluate -Cardiology ordered repeat TTE on 01/01 which showed stable to mildly decreased pleural effusion - Dr. Moy ordered 20 mg IVP Lasix this afternoon due to reported MAXWELL, assess response and redose as needed, may consider switching to PO for discharge - Will order repeat CXR for the AM - Patient has appt on @ 7:[address] Koroma of Rheumatology Chronic Cholecystitis - CT and U/S findings as above - Patient without any RUQ Pain, N/V, likely chronic cholecystitis - Consulted surgery on 12/30 who recommend no acute surgical management, patient will f/u with Dr. Ahn as an outpatient #Hypovolemic hyponatremia:Na 132 this AM, continue to monitor #Atrial fibrillation with RVR: - converted to NSR with Amio on admission, was not continued - Likely related to Pericarditis - Continue ASA - May need outpatient monitoring per cardiology #Diet: regular #DVT ppx: Lovenox #Disp: inpatient admission for cardiac evaluation, likely d/c tomorrow A Subjective: Patient reports some MAXWELL this AM Objective: Vital Signs Temp Pulse Resp BP Pulse Ox 37.0 C 85 18 113/75 89 L 01/02/19 12:00 01/02/19 12:00 01/02/19 12:00 01/02/19 12:00 01/02/19 12:00 Microbiology 12/27/18 14:45 Gram Stain - Final Pleural Fluid - Aspirate Laboratory Results 12/31/18 03:50 01/02/19 03:45 01/01/19 01/02/19 01/03/19 05:59 05:59 05:59 Intake Total 1400 2760 250 Output Total 2600 2875 1450 Balance -1200 -115 -1200 PT 14.8 SEC (12.0-15.0) 12/27/18 12:55 INR 1.14 (0.83-1.16) 12/27/18 12:55 - Physical Exam Constitutional: no apparent distress Eyes: PERRL Ears, Nose, Mouth, Throat: moist mucous membranes Cardiovascular: regular rate and rhythym Respiratory: no respiratory distress, reduced air movement Gastrointestinal: soft, non-tender abdomen Skin: warm Musculoskeletal: full muscle strength Neurologic: AAOx3 Psychiatric: interacting appropriately ICD10 Worksheet Patient Problems: Problems Problem Status Onset Pericardial effusion Acute Pleural effusion Acute Rapid atrial fibrillation Acute
[2019-01-02] MEDS: SIMVASTATIN 20MG PO SCH (19:34)
[2019-01-02] MEDS: PATCH REMOVAL 1 EA PATCH TD SCH (21:10)
[2019-01-03] MEDS: IBUPROFEN 200 MG TAB PO SCH ×2 (06:25→13:17)
[2019-01-03] MEDS: COLCHICINE 0.6 MG CAP/TAB PO SCH (08:32)
[2019-01-03] MEDS: PANTOPRAZOLE SODIUM 40 MG TAB PO SCH (08:33)
[2019-01-03] MEDS: ENOXAPARIN 40 MG/0.4 ML SYR SC SCH (08:34)
[2019-01-03] MEDS: LIDOCAINE 4%/MENTHOL 1% PATCH TD SCH (09:49)
[2019-01-03 12:20] VITALS: BP 129/77
--- NOTE | 2019-01-03 13:13 | PDHOMEO2F ---
Home Oxygen Face to Face Home Orders: I certify that a physician or a nurse practitioner or physician's executive marketing assistant has had a [id number] encounter with this patient on the date of this order due to the diagnosis listed, which relates to the primary reason the patient requires home oxygen. Alternative treatments have been tried, or considered, and deemed ineffective. It is anticipated that supplemental oxygen will result in improvement with treatment. Home oxygen qualifying diagnosis: respiratory failure with hypoxia SpO2 on room air (%): 84 Frequency of home oxygen needed: during sleep Home oxygen liters per minute: 2 Home oxygen delivery device: nasal cannula Concentrator: Yes E-tanks for mobility and back up: Yes If ordering portable O2, is the patient mobile in the home?: Yes I certify that, based on these findings, the home oxygen is medically necessary for this patient for the following length of time. Length of time home oxygen needed: 3 months
--- NOTE | 2019-01-03 13:59 | ASDISCHSUM ---
Discharge Information Plan Status:Home with No Needs Medically Cleared to Leave: Discharge Date: CM D/C Disposition:Home, Routine, Self-Care ADT D/C Disposition:Home, Routine, Self-Care Projected Discharge Date: Transportation at D/C:Family Discharge Delay Reason: Follow-Up Date: Discharge Slot: Final Diagnosis:Pericarditis, RVR Afib Placement Information Patient Contact Information Contact Name:SUSAN Relationship:Friend Address:[address] [place] [address] Work Phone: City:[facility] Phone: State/Zip Code:[place] [address] Email: Financial Information Financial Class:Medicare Primary Plan Desc:MEDICARE INPATIENT Primary Plan Number:[id number] Secondary Plan Desc:[employer]/MDR SUPPLEMENT Secondary Plan Number:[id number] Assessment Information BC CM Progress Note CM Note CM Note Notes: Pts case discussed in tx rounds. Pt is a 73 y/o female admitted for afib rapid vent response. Therapies have been ordered and awaiting recommendations. Needs are TBD at this time. CM to follow. Plan: TBD Date Signed: 12/27/2018 01:57 PM Electronically Signed By:CAMILLA Rowe LACE LACE Length of stay for Answers: 7-13 days current admission Acuity / Level of Answers: Yes Care: Did the patient have an inpatient admission? Comorbidities - select Answers: Other Notes: HLD, pericarditis, A all that apply fib, Cholecystitis # of Emergency department Answers: 1-2 visits in the last 6 months Score: 10 Date Signed: 01/03/2019 01:58 PM Electronically Signed By:Linda Coronado [facility] CM Progress Note CM Note CM Note Notes: 12/29/2018 Case Management Note Discussed pt during rounds this morning. Awaiting cytology results to determine next steps with medical treament. Discussed with MD who ordered therapy evals. Case Management d/c poc: to be determined. Case Management to follow. Date Signed: 12/29/2018 03:52 PM Electronically Signed By:Mylene Barclay RN [facility] CM Progress Note CM Note CM Note Notes: 12/31/2018 Case Management Note Discussed pt during rounds this morning. PT eval cleared pt to return home independent. Case Management d/c poc: independent with follow up as directed. Case Management available if needs change. Date Signed: 12/31/2018 02:47 PM Electronically Signed By:Mylene Barclay RN [facility] CM Progress Note CM Note CM Note Notes: Met with pt at RN's request. Pt was unclear about the meaning of Medicare letter she received at time of admission. CM informed pt that the letter she received during her admission explained her rights as a Medicare recipient. Also informed her she would receive the IM letter when she discharges. Pt also concerned about asking her for too much assistance after she gets home and would like to have the [employer] Whe[employer] Homecoming for 5 days. CM to arrange MOW. PT/OT have cleared pt. CM to follow for any d/c needs. D/C plan: home independent, with MOW Date Signed: 01/02/2019 02:23 PM Electronically Signed By:BELLO Pitts Case Management Discharge Plan Note Case Management Discharge Discharge Order Complete? Answers: Yes Patient to Obtain Answers: via Family Medications Transportation Arranged Answers: Family/Friends Transport will Pick (Date 01/03/2019 12:00 AM & Time) Family Notified Answers: Yes Notes: pt called Discharge Comments Notes: Pt to discharge independently with support from . CM called [employer] and arranged for meal delivery starting . No further CM needs noted at this time. CM available should needs change. Date Signed: 01/03/2019 01:56 PM Electronically Signed By:Linda Coronado Intervention Information Intervention Type:*IM-Signed Date of Service:12/30/2018 03:29 PM Patient Type:Inpatient Staff Member:Sujey Godinez Hours: Discipline: Severity: Comment: Intervention Type:Meals On Wheels Date of Service:12/30/2018 03:32 PM Patient Type:Inpatient Staff Member:Sujey Godinez Hours: Discipline: Severity: Comment:Provided education and information for Project Homecoming - 5 free meals post discharge.
== END 2019-01-03 15:06 | disposition home or self-care (01) | DRG 315 ==
LOC: EDSTATUS 17:06 → SUPCPDRO 17:06 → F2W 20:07
PROVIDERS: ADMIT Internal Medicine; ATTEND Internal Medicine
PROC: 0W9B3ZZ Drainage of Left Pleural Cavity, Percutaneous Approach (ICD-10-PCS; principal; 2018-12-27)
DX: I31.3 Pericardial effusion (noninflammatory) (principal); J90 Pleural effusion, not elsewhere classified; E78.5 Hyperlipidemia, unspecified; I48.91 Unspecified atrial fibrillation; D64.9 Anemia, unspecified; K81.1 Chronic cholecystitis
CPT/HCPCS: 84484-ER; 96374; 97161-GP; 97165-GO; A9500; J0282; J1650; J1940; J2785; Q9967

== ENCOUNTER 2019-01-07 18:08 | Emergency (ER) | payer OTHER, MEDICARE ==
--- NOTE | 2019-01-07 18:36 | CPEKG ---
Test Reason : OPEN Blood Pressure : / mmHG Vent. Rate : 080 BPM Atrial Rate : 079 BPM P-R Int : 164 ms QRS Dur : 113 ms QT Int : 389 ms P-R-T Axes : 052 -42 000 degrees QTc Int : 449 ms Sinus rhythm Left anterior fascicular block LVH with secondary repolarization abnormality Confirmed by Tobi Blanca ([id number]) on 01/07/2019 6:36:23 PM Referred By: TOBI BLANCA Confirmed By:Tobi Blanca
--- NOTE | 2019-01-07 19:03 | EDPHY ---
H & P Time Seen by Provider: 01/07/19 18:22 HPI/ROS: Chief complaint. Fever HPI. Patient is a 73-year-old female presents emergency department with fever to 100.8 degrees. Some cough. No URI symptoms. No abdominal pain. She did however have a 5 sec left mid abdominal twinge earlier but no longer since. No vomiting or diarrhea. She has upper chest pain and shoulder pain that has been present for about 2 weeks. No urinary symptoms. No rash. Fatigue. The patient was discharged 5 days ago for pericarditis. She had travel to [facility] and where she was having the shoulder pain and shortness of breath. She was seen then in the emergency department and had moderate pericardial effusion with negative troponins. She was in atrial fibrillation with RVR. She has no unusual leg pain or swelling. She saw her core cleaner yesterday with negative evaluation. ROS 10 systems were reviewed and negative with the exception of the elements mentioned in the history of present illness Past Medical/Surgical History: Pericarditis in atrial fibrillation, dyslipidemia, pleural effusion from the pericarditis, cholelithiasis Social History: , nonsmoker, no alcohol Smoking Status: Never smoked Physical Exam: General Appearance: Alert pleasant well-developed female temp is 37.4 degrees Eyes: Pupils equal and round no pallor or injection. ENT, Mouth: Mucous membranes are moist. Respiratory: There are no retractions, lungs are clear to auscultation. Cardiovascular: Regular rate and rhythm. Gastrointestinal: Abdomen is soft and nontender, no masses, bowel sounds normal. Neurological: Awake and alert, sensory and motor exams grossly normal. Skin: Warm and dry, no rashes. Musculoskeletal: Neck is supple nontender. Extremities symmetrical, full range of motion. Psychiatric: Patient is oriented X 3, there is no agitation. Constitutional: Initial Vital Signs Temperature (C) 37.4 C 01/07/19 18:14 Heart Rate 84 01/07/19 18:14 Respiratory Rate 18 01/07/19 18:14 Blood Pressure 137/78 H 01/07/19 18:14 O2 Sat (%) 93 01/07/19 18:14 O2 Delivery Mode Room Air Allergies/Adverse Reactions: meloxicam Allergy (Verified 01/07/19 18:20) Opioids - Morphine Analogues Allergy (Verified 01/07/19 18:20) Home Medications: Medication Instructions Recorded SIMVASTATIN [Zocor] 20 mg PO DAILY@18 09/29/10 Acetaminophen [Tylenol 325mg (*)] 650 mg PO Q4 PRN 12/26/18 Colchicine [Colchicine (*)] 0.6 mg PO DAILY #90 ea 01/03/19 Ibuprofen [Motrin (*)] 400 mg PO TID tab 01/03/19 Pantoprazole Sodium [Protonix 40mg 40 mg PO DAILY #10 tab 01/03/19 (*)] Medical Decision Making - Diagnostics EKG Interpretation: EKG is interpreted by me showing normal sinus rhythm normal interval. Left axis deviation. Left anterior fascicular block. Mild interventricular conduction delay. No significant ST elevation or depression. Some lateral T- wave changes. Rate is 80. No significant change from previous EKG January 01 Imaging Results: Imaging Impressions Chest X-Ray 01/07/19 18:50 Impression: 1. Stable mild cardiomegaly. 2. Persistent left pleural effusion with left basilar consolidation, and new tiny right pleural effusion with some right basilar airspace disease. Chest x-ray interpreted by me shows stable left pleural effusion compared to x- ray 4 days ago. Possible new tiny right pleural effusion. No evidence for pneumonia Procedures: IV normal saline. Septic workup ED Course/Re-evaluation: On re-evaluation patient remains stable. Patient, her , and I discussed laboratory evaluation, EKG findings, imaging study results. We discussed treatment plan. Patient is offered admission as she has had recent hospitalization for pericarditis and pleural effusion. She does not wish to be readmitted and agrees to return for worsening symptoms and to follow up for continuing symptoms. Differential Diagnosis: I considered pneumonia, influenza, pericarditis, acute coronary syndrome - Data Points Laboratory Results: Laboratory Results 01/07/19 19:05 01/07/19 19:05 01/07/19 01/07/19 01/07/19 19:13 19:05 19:05 WBC RBC Hgb Hct MCV MCH MCHC RDW Plt Count MPV Neut % (Auto) Lymph % (Auto) [place] % (Auto) Eos % (Auto) Baso % (Auto) Nucleat RBC Rel Count Absolute Neuts (auto) Absolute Lymphs (auto) Absolute Monos (auto) Absolute Eos (auto) Absolute Basos (auto) Absolute Nucleated RBC Immature Gran % Immature Gran # VBG Lactic Acid Sodium 131 mEq/L L mEq/L (135-145) Potassium 4.5 mEq/L mEq/L (3.5-5.2) Chloride 102 mEq/L mEq/L (97-110) Carbon Dioxide 22 mEq/l mEq/l (22-31) Anion Gap 7 mEq/L mEq/L (6-14) BUN 24 mg/dL H mg/dL (7-23) Creatinine 1.0 mg/dL mg/dL (0.6-1.0) Estimated GFR 54 Glucose 107 mg/dL H mg/dL (70-100) Calcium 8.9 mg/dL mg/dL (8.5-10.4) POC Troponin I 0.00 ng/mL ng/mL (0.00-0.08) Nasal Influenza A PCR NEGATIVE FOR FLU A (NEGATIVE) Nasal Influenza B PCR NEGATIVE FOR FLU B (NEGATIVE) RSV (PCR) NEGATIVE FOR RSV (NEGATIVE) 01/07/19 01/07/19 19:05 19:05 WBC 12.09 10^3/uL H 10^3/uL (3.80-9.50) RBC 3.46 10^6/uL L 10^6/uL (4.18-5.33) Hgb 10.1 g/dL L g/dL (12.6-16.3) Hct 30.9 % L % (38.0-47.0) MCV 89.3 fL fL (81.5-99.8) MCH 29.2 pg pg (27.9-34.1) MCHC 32.7 g/dL g/dL (32.4-36.7) RDW 13.0 % % (11.5-15.2) Plt Count 596 10^3/uL H 10^3/uL (150-400) MPV 9.2 fL fL (8.7-11.7) Neut % (Auto) 72.9 % % (39.3-74.2) Lymph % (Auto) 13.2 % L % (15.0-45.0) [place] % (Auto) 8.9 % % (4.5-13.0) Eos % (Auto) 4.0 % % (0.6-7.6) Baso % (Auto) 0.7 % % (0.3-1.7) Nucleat RBC Rel Count 0.0 % % (0.0-0.2) Absolute Neuts (auto) 8.82 10^3/uL H 10^3/uL (1.70-6.50) Absolute Lymphs (auto) 1.60 10^3/uL 10^3/uL (1.00-3.00) Absolute Monos (auto) 1.07 10^3/uL H 10^3/uL (0.30-0.80) Absolute Eos (auto) 0.48 10^3/uL H 10^3/uL (0.03-0.40) Absolute Basos (auto) 0.08 10^3/uL 10^3/uL (0.02-0.10) Absolute Nucleated RBC 0.00 10^3/uL 10^3/uL (0-0.01) Immature Gran % 0.3 % % (0.0-1.1) Immature Gran # 0.04 10^3/uL 10^3/uL (0.00-0.10) VBG Lactic Acid 0.7 mmol/L mmol/L (0.7-2.1) Sodium Potassium Chloride Carbon Dioxide Anion Gap BUN Creatinine Estimated GFR Glucose Calcium POC Troponin I Nasal Influenza A PCR Nasal Influenza B PCR RSV (PCR) Point of Care Test Results: Chemistry 01/07/19 19:13 POC Troponin I 0.00 ng/mL ng/mL (0.00-0.08) Departure - Departure Disposition: Home, Routine, Self-Care Clinical Impression: Pleural effusion Condition: Good Instructions: Viral Syndrome (ED) Additional Instructions: Tylenol 650 mg every 4-6 hours as needed for Return for worsening fever, chest pain, shortness of breath, abdominal pain or urinary symptoms Recheck in 2 days if not improving Referrals: Mylene Dahl MD [Primary Care Provider] - 2-3 days, if not improved
[2019-01-07 19:24] LABS: PLATELET COUNT 596 10^3/uL (150-400)
[2019-01-07 20:12] VITALS: BP 123/77
== END 2019-01-07 20:45 | disposition home or self-care (01) ==
DX: J90 Pleural effusion, not elsewhere classified (principal); I48.91 Unspecified atrial fibrillation; R78.5 Finding of other psychotropic drug in blood
CPT/HCPCS: 84484-ER

== ENCOUNTER → 2019-02-21 | Outpatient (CLI) | payer OTHER, MEDICARE | LOC: BHFA 10:45 | PROVIDERS: ATTEND Internal Medicine Cardiovascular Disease | DX: I48.91 Unspecified atrial fibrillation (principal) ==